=== PATIENT | female | born 1950 | race Caucasian/White ===

== ENCOUNTER 2016-11-17 11:04 | Day surgery (SDC) | payer BC, MEDICARE, OTHER ==
--- NOTE | 2016-11-16 20:00 | History and Physical ---
History & Physical CC: End stage renal disease,malfunctioning fistula HPI: Mrs. Powell is status post a longstanding history of severe chronic kidney disease. She currently has a renal transplant, which was placed in 2001 , which is failing presently. Prior to getting her previous renal transplant, she was on hemodialysis for a few years and had a left wrist cephalic vein fistula as well as a left antecubital cephalic vein fistula, both of which failed and are thrombosed. She currently states that her renal function is decreasing significantly and she is aware she will likely need dialysis in the near future. She is on a new transplant list; however, she is aware that her renal function is declining to the point that she will require dialysis before she receives any transplant. She now had a right upper extremity basilic vein fistula creation which has matured well. She then had a transposition of the fistula It is now not working well She denies any other complaints at this time including headaches, fevers, chills, dizziness, chest pain, shortness of breath, abdominal pain, nausea, vomiting, diarrhea, constipation, dysuria, hematuria, rest pain, claudication, nonhealing wounds or ulcers or other complaints. HER ALLERGIES INCLUDE UROKINASE AND VANCOMYCIN. Her medications are reconciled on the chart and include aspirin, Bactrim, Dexilant, Imuran, Lipitor, magnesium oxide, metoprolol succinate, Norvasc, prednisone, Procrit, Prograf, sodium bicarbonate, and vitamin D3. Her past medical history is positive for hypertension, chronic kidney disease, Stargardt eye disorder, hyperparathyroidism, hypothyroidism, chronic anemia, eosinophilic gastroenteritis, polyneuropathy, hyperlipidemia, West's esophagus. Past surgical history is positive for hysterectomy and bilateral salpingo- oophorectomy, kidney transplant, EGD, wisdom tooth extraction, dilation of esophageal stricture, colonoscopy, creation wrist arteriovenous fistula, creation antecubital cephalic vein arteriovenous fistula, left arm. Her social history is negative for tobacco, alcohol, or drug use. Her family history is positive for Crohn's disease in a brother, rheumatoid arthritis in a sister, Stargardt disease in 2 brothers and sister, diabetes in her father, [place] in an unknown family member, and cancer, nonspecific. Her review of systems is negative for fatigue, fevers, sweats, weight loss, abnormal moles or rashes, vision changes or photophobia. 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 She denies hearing loss, rhinorrhea, or pharyngeal erythema. She denies cough, shortness of breath, hemoptysis or wheezing, chest pain, palpitations, edema or syncope, abdominal pain, nausea, vomiting, diarrhea, constipation, dysuria, hematuria, muscle weakness, headaches, dizziness, numbness, or seizures. On physical exam, her vital signs today were as follows: Blood pressure of 142/ 80 in her right arm, heart rate of 71, oxygen 96% on room air. The patient is 67 inches tall and weighs 197 pounds. Constitutional: In general, patient is a healthy-appearing for age, well-nourished, well-developed middle-aged female in no acute distress. She ambulates without assistance and is active, alert and oriented x4 with normal recent and remote memory. Her head is normocephalic , atraumatic. Eyes are EOMI. Her ENMT exam demonstrates no hearing loss, rhinorrhea, or pharyngeal erythema. Her neck is supple, nontender with midline trachea without masses or crepitus. Her lung exam demonstrates no dyspnea. They are clear to auscultation bilaterally. Her cardiovascular exam demonstrates nondisplaced apical impulse with a regular rate and rhythm without murmurs, lifts, heaves, thrills, or gallops. Her peripheral pulses are full and equal in all extremities unless otherwise noted, specifically they are normal in her carotid, brachial, radial, and femoral pulses. There is a good thrill in her fistula. Her extremity distal pulses are +2. She has brisk capillary refill and no sign of distal ischemia. Her abdomen is soft, nontender with normoactive bowel sounds in all 4 quadrants without guarding or rebound. There is no flank or CVA tenderness and no bruits identified. There are no pulsatile masses appreciable. Her bilateral upper extremities demonstrate no cyanosis, edema, clubbing, varicosities, or ulcers. Her previous surgical scars are well-healed. Her bilateral lower extremities demonstrate trace edema but otherwise no varicosities, cyanosis, or discoloration. There are no ulcerations. Neurologically, the patient has grossly intact cranial nerves and grossly intact sensation. Assessment and Plan: End-stage renal disease, Malfunctioning fistula Plan: Patient is admitted for a fistulogram with possible intervention. I have discussed the risks options and benefits of the procedure with the patient. The patient understands the risks options and benefits and agrees to the procedure.
[~2016-11-17] VITALS: Ht 170.2 cm; Wt 91.0 kg
[~2016-11-17 11:04] MED LIST: ACET-1256 PO; AMLO2.5T PO; ASPI81TA28 PO; ATOR10TA88 PO; AZAT50TA17 PO; CALC0.2510 PO; CEFAZOLIN 1000MG/55 ML D5W IV SCH; CEFAZOLIN 2000 MG/60 ML D5W 60 ML IV SCH; D5W AND 1/4NSS 1,000 ML IV SCH; DEXL30CA5 PO; EPGI20M SQ; FRS/40 PO; METO25TA3 PO; ONDA8TAB7 PO; PRED-301 PO; SLWMEC PO; SODI650T8 PO; SULF400T7 PO; TACR1CAP PO; VITAMIN D3 PO; [UNRECOGNIZED DRUG - CODE] PO
[2016-11-17] MEDS ORDERED: MIDAZOLAM HCL 1 MG/ML 2ML VIAL ONE (11:36)
[2016-11-17] MEDS ORDERED: FENTANYL CITRATE INJ 50 MCG/1 ML 2 ML VIAL ONE (11:36)
[2016-11-17] MEDS ORDERED: PRED10TA PO (11:41)
[2016-11-17] MEDS ORDERED: EPOETIN IV (11:41)
[2016-11-17] MEDS ORDERED: Sodium Bicarbonate HM (11:41)
[2016-11-17] MEDS ORDERED: Vitamin B-12 IM (11:42)
--- NOTE | 2016-11-17 11:43 | History & Physical Bridge Note ---
H&P Re-Evaluation Bridge Note: I have examined the patient, reviewed the History & Physical and in the interval since the performance of the History & Physical I have noted the following changes of clinical significance: No changes noted
--- NOTE | 2016-11-17 11:43 | Procedure Note ---
Pre-Mod Sedation Assessment General Date of Moderate Sedation: Nov 17, 2016. Pre-Sedation Airway Assessment Smoking Status: Former Smoker Mallampati Classification: Class I ASA Classification: Class II Notes The planned sedation has been discussed with the patient and consent obtained. I have identified the patient, determined the appropriateness of sedation and have assessed the patient immediately prior to the procedure. All medicine(s) and interventions are by my order.
[2016-11-17] MEDS ORDERED: CINA60TA PO (11:44)
[2016-11-17] MEDS ORDERED: Citracal PO (11:44)
[2016-11-17 11:47] VITALS: BP 137/67; PULSE 80; TEMP 36.8; O2SAT 96; Ht 170.2 cm; Wt 91.0 kg
[2016-11-17] MEDS ORDERED: MIDAZOLAM HCL 1 MG/ML 2ML VIAL IV ONE (12:45)
[2016-11-17] MEDS ORDERED: FENTANYL CITRATE INJ 50 MCG/1 ML 2 ML VIAL IV ONE (12:45)
[2016-11-17] MEDS ORDERED: OPTIRAY 300 IV ONE (12:59)
[2016-11-17] MEDS ORDERED: LIDOCAINE HCL 1% 20 ML VIAL INJ ONE (12:59)
--- NOTE | 2016-11-17 13:08 | Procedure Note ---
Post-Moderate Sedation Plan General Date of Moderate Sedation Nov 17, 2016. Vital Signs: Vital Signs Past 12 Hours Date Time Temp Pulse Resp B/P Pulse Ox O2 Delivery O2 Flow Rate FiO2 11/17/16 11:47 36.8 80 18 137/67 96 Room Air Review - Discharge Plan Post Moderate Sedation Plan: On clinical assessment, the patient appears to have tolerated the conscious sedation without complications. Patient is recovering as anticipated. Patient will continue to be monitored by nursing and may be discharged when conscious sedation discharge criteria are met.
--- NOTE | 2016-11-17 13:09 | [facility] Post Operative Brief Note ---
Immediate Operative Summary Operative Date Nov 17, 2016. Pre-Operative Diagnosis Malfunctioning Fistula Post-Operative Diagnosis Same Procedure(s) Performed Fistulogram, Percutaneous Transluminal Angioplasty/Stent Venous, Peripheral, Moderate Concious Sedation [id number] Surgeon Ronit Call Center Rn Surgeon(s) None Estimated Blood Loss 10 ml Findings good thrill, 10% residual stenosis Specimens None Anesthesia Local with moderate conscious sedation Complication(s) None Disposition
[2016-11-17 13:10] VITALS: BP 132/67; PULSE 81; TEMP 36.7; O2SAT 97
--- NOTE | 2016-11-17 13:13 | Discharge Instructions ---
Discharge Instructions Visit Reason for Visit: End Stage Renal Disease, Malfuctioning Fistula Discharge Discharge Diagnosis / Problem: Malfunctioning left arm fistula Discharge Goals Goal(s): Therapeutic intervention Activity Recommendations Activity Limitations: per Instructions/Follow-up section Anesthesia . Post Anesthesia Instructions: If you have had General Anesthesia or IV Sedation: * Do not drive today. * Resume driving when surgeon permits. * Do not make important decisions or sign legal documents today. * Call surgeon for: 1. Temperature elevations greater than 101 degrees F. 2. Uncontrollable pain. 3. Excessive bleeding. 4. Persistent nausea and vomiting. 5. Medication intolerance (nausea, vomiting or rash). * For nausea and vomiting use only clear liquids such as: tea, soda, bouillon until nausea subsides, then gradually increase diet as tolerated. * If you have any concerns or questions, call your surgeon's office. If physician is unavailable and it is an emergency, call 911 or go to the nearest emergency room. . Instructions / Follow-Up Instructions / Follow-Up Call [phone] with any questions or concerns. SPECIAL CARE INSTRUCTIONS: Medications: * Continue to take your medications as directed. If you have been given a prescription for Plavix, please fill it immediately and take as directed. Incision Care: * Your puncture site may have some bruising and minor swelling for about one week. * You will have a small dressing covering your puncture site. You may remove the dressing after 24 hours and shower. You may let the warm soapy water run over it, but be sure to dry the puncture site well and keep it dry. * DO NOT IMMERSE THE INCISION IN A TUB/POOL/etc. UNTIL HEALED. * Puncture sites should be kept covered with a band-aid until it begins to heal. Restrictions: * Depending on whether you leg or arm was punctured to access the arteries, you will be required to lay flat, hold your arm still, or both, for about 4 hours after the procedure to prevent bleeding. * Limit your activity for the first 48 hours. You may walk and go up and down steps. Avoid excessive bending or movement at the puncture site. Possible Complications: * Excessive Swelling - after blood flow is improved you may notice increased swelling in the lower legs. This is a normal response. This usually depends on the amount of blockages in the leg, how long they have been there prior to your procedure and how much blood flow was restored. Elevating your legs will help to improve this. Please notify our office ([phone] ) if the swelling does not go away after lying in bed overnight. * Infection/Drainage/Bleeding - Drainage or bleeding from the puncture site should be minimal. If you have excessive bleeding or drainage, call our office ([phone]) right away. * Pain - You may experience some mild pain or soreness at your puncture site. If your pain does not improve, please contact our office ([phone]). Call your doctor and seek emergent treatment if you develop: * Temperature above 101 degrees * Any fever or chills * Any redness or purulent drainage from the puncture site * Any new dusky/blue colored toes or feet with coolness or sharp or aching pain. SKIN IRRITATION: * You may experience some redness and/or swelling in the area where radiation was administered. If any skin irritation occurs, please contact your family physician. FOLLOW UP VISIT: Keep any scheduled doctor appointments. Diet Recommendations Recommended Home Diet: resume previous diet Procedures Procedures Performed: Fistulogram, Percutaneous Transluminal Angioplasty/Stent Venous, Peripheral, Moderate Concious Sedation [id number] Pending Studies Studies pending at discharge: no Medical Emergencies . Who to Call and When: Medical Emergencies: If at any time you feel your situation is an emergency, please call 911 immediately. . Non-Emergent Contact Non-Emergency issues call your: Surgeon . . "Provider Documentation" section prepared by Florian Cottrell.
[2016-11-17 13:40] VITALS: BP 149/69; PULSE 84; O2SAT 98
--- NOTE | 2016-11-26 09:35 | DIAGNOSTIC IMAGING REPORT ---
DATE OF PROCEDURE: 11/17/2016 DATE OF PROCEDURE: 11/17/2016. PREOPERATIVE DIAGNOSIS: Malfunctioning left upper arm basilic vein fistula. POSTOPERATIVE DIAGNOSIS: Same. PROCEDURE: 1. Left upper extremity fistulogram. 2. Balloon and stenting of the left upper arm fistula. 3. Moderate conscious sedation 18 minutes. SURGEON: Dr. Cottrell. ANESTHETIC: Local with moderate conscious sedation. INDICATIONS: The patient is a 66-year-old female with left upper arm basilic vein fistula. They are having flow problems with the fistula. Fistulogram was recommended. She understood the risks, options and benefits and agreed to have this procedure. PROCEDURE: The patient was taken to the angiogram suite and placed in supine position. After left upper arm was prepped and draped in a sterile manner, local anesthetic was administered. Percutaneous puncture was made of the proximal portion of the fistula using micropuncture technique and micropuncture sheath was inserted. The fistulogram was then performed. This showed a large 8 mm fistula up to the upper arm just before the anterior axillary line at which point there was a greater than 90% narrowing which was approximately 3.9 cm in length. The more proximal veins and central veins were all widely patent. It was decided at this point due to the length and the amount of stenosis that this will have to be stented. An 0.035 wire was inserted. It was passed through the stenosis. The sheath was exchanged for a 7 Tamazight sheath. A 9 x 59 iCAST was then inserted and the stent was deployed. There was a significant residual stenosis center in the stent. The stent on the completion injection was widely patent with good apposition proximally and distally. Again, the only narrowing was right in the center of the stent. A 6 x 2 Conquest balloon was then inserted and this area was dilated. There was still residual narrowing seen. An 8 x 2 balloon was then inserted and this focal narrowing was redilated to 32 atmospheres. This resolved the narrowing. There was less than 10% residual in the center portion of the stent. Excellent flow was seen through the fistula. Good thrill was felt. The sheath was then pulled, pressure was applied. Adequate hemostasis was obtained. Sterile dressings were applied to the wound and the patient left the angio suite in good condition and tolerated the procedure well.
== END 2016-11-17 13:45 | disposition home or self-care (01) ==
LOC: C.ACU 11:04
PROVIDERS: ATTEND Surgery Vascular Surgery
DX: T82.868A Thrombosis due to vascular prosthetic devices, implants and grafts, initial encounter (principal); I12.9 Hypertensive chronic kidney disease with stage 1 through stage 4 chronic kidney disease, or unspecified chronic kidney disease; N18.9 Chronic kidney disease, unspecified; D64.9 Anemia, unspecified; E21.3 Hyperparathyroidism, unspecified; K52.81 Eosinophilic gastritis or gastroenteritis; Y84.8 Other medical procedures as the cause of abnormal reaction of the patient, or of later complication, without mention of misadventure at the time of the procedure; Z88.1 Allergy status to other antibiotic agents; Z88.8 Allergy status to other drugs, medicaments and biological substances; Z90.710 Acquired absence of both cervix and uterus; Z98.890 Other specified postprocedural states

== ENCOUNTER → 2016-12-22 | Outpatient (CLI) | payer MEDICARE ==
[~2016-12-22] MED LIST changes: -AZAT50TA17 PO; -CALC0.2510 PO; -CEFAZOLIN 1000MG/55 ML D5W IV SCH; -CEFAZOLIN 2000 MG/60 ML D5W 60 ML IV SCH; +CINA60TA PO; +Citracal PO; -D5W AND 1/4NSS 1,000 ML IV SCH; -EPGI20M SQ; +EPOETIN IV; -PRED-301 PO; +PRED10TA PO; -SODI650T8 PO; +Sodium Bicarbonate HM; +Vitamin B-12 IM
== END | disposition home or self-care (01) ==
LOC: C.MAMM 13:23
PROVIDERS: ATTEND Family Medicine
DX: M85.851 Other specified disorders of bone density and structure, right thigh (principal); M85.852 Other specified disorders of bone density and structure, left thigh

== ENCOUNTER → 2017-04-06 | Outpatient (CLI) | payer MEDICARE ==
[~2017-04-06] MED LIST changes: +ATOR10TA82 PO; -ATOR10TA88 PO
--- NOTE | 2017-04-07 08:20 | MAMMOGRAPHY REPORT ---
BILATERAL DIGITAL SCREENING MAMMOGRAM WITH CAD: 04/06/2017 CLINICAL HISTORY: Routine screening. Patient has no complaints. TECHNIQUE: Bilateral CC and MLO views were obtained. Current study was also evaluated with a Compute r Aided Detection (CAD) system. COMPARISON: Comparison is made to exams dated: 04/18/2015 mammogram, 03/20/2014 mammogram, 11/29/2012 ma mmogram, 11/23/2011 mammogram, 11/20/2010 mammogram, and 11/11/2009 mammogram - [facility]ter. BREAST COMPOSITION: There are scattered areas of fibroglandular density in both breasts. FINDINGS: There are a few stable benign-appearing calcifications in the breasts. No suspicious mass , architectural distortion or cluster of microcalcifications is seen. IMPRESSION: ACR BI-RADS CATEGORY 1: NEGATIVE There is no mammographic evidence of malignancy. A 1 year screening mammogram is recommended. The pa tient will receive written notification of the results. Approximately 10% of breast cancers are not detected with mammography. A negative mammographic report should not delay biopsy if a clinically suggestive mass is present. Evelin Ceja M.D. ay/:04/06/2017 16:41:12 Embedded Systems Software Engineer: Lucy MANCIA(Isak)(M), [facility] letter sent: Normal 1/2 BI-RADS Code: ACR BI-RADS Category 1: Negative
== END | disposition home or self-care (01) ==
LOC: C.MAMM 15:34
PROVIDERS: ATTEND Obstetrics & Gynecology
DX: Z12.31 Encounter for screening mammogram for malignant neoplasm of breast (principal)

== ENCOUNTER → 2017-05-25 | Day surgery (SDC) | payer MEDICARE ==
[~2017-05-25] VITALS: Ht 170.2 cm; Wt 100.1 kg
[~2017-05-25] MED LIST changes: -ATOR10TA82 PO; +ATOR10TA88 PO; +CEFAZOLIN 1000MG/55 ML D5W IV SCH; +CEFAZOLIN 2000 MG/60 ML D5W IV SCH; +CEFAZOLIN IV 2,000 MG/60 ML D5W IV ONE; +D5W AND 1/4NSS 1000 ML IV SCH; +FENTANYL CITRATE INJ 50 MCG/1 ML 2 ML VIAL ONE; +KETAMINE HCL INJ 50 MG/ML 10 ML VIAL ONE; +LIDOCAINE HCL 1% 20 ML VIAL INJ ONE; +MIDAZOLAM HCL 1 MG/ML 2ML VIAL ONE; +OPTIRAY 300 IV ONE; +PROPOFOL IV EMULSION 10 MG/ML 20 ML VIAL IV ONE
--- NOTE | 2017-05-25 07:17 | History and Physical ---
History & Physical Date of Service May 25, 2017. History & Physical CC: End stage renal disease,malfunctioning fistula HPI: Mrs. Powell is status post a longstanding history of severe chronic kidney disease. She currently has a renal transplant, which was placed in 2001 , which is failing presently. Prior to getting her previous renal transplant, she was on hemodialysis for a few years and had a left wrist cephalic vein fistula as well as a left antecubital cephalic vein fistula, both of which failed and are thrombosed. She currently states that her renal function is decreasing significantly and she is aware she will likely need dialysis in the near future. She is on a new transplant list; however, she is aware that her renal function is declining to the point that she will require dialysis before she receives any transplant. She now had a right upper extremity basilic vein fistula creation which has matured well. She then had a transposition of the fistula It is now not working well She denies any other complaints at this time including headaches, fevers, chills, dizziness, chest pain, shortness of breath, abdominal pain, nausea, vomiting, diarrhea, constipation, dysuria, hematuria, rest pain, claudication, nonhealing wounds or ulcers or other complaints. HER ALLERGIES INCLUDE UROKINASE AND VANCOMYCIN. Her medications are reconciled on the chart and include aspirin, Bactrim, Dexilant, Imuran, Lipitor, magnesium oxide, metoprolol succinate, Norvasc, prednisone, Procrit, Prograf, sodium bicarbonate, and vitamin D3. Her past medical history is positive for hypertension, chronic kidney disease, Stargardt eye disorder, hyperparathyroidism, hypothyroidism, chronic anemia, eosinophilic gastroenteritis, polyneuropathy, hyperlipidemia, West's esophagus. Past surgical history is positive for hysterectomy and bilateral salpingo- oophorectomy, kidney transplant, EGD, wisdom tooth extraction, dilation of esophageal stricture, colonoscopy, creation wrist arteriovenous fistula, creation antecubital cephalic vein arteriovenous fistula, left arm. Her social history is negative for tobacco, alcohol, or drug use. Her family history is positive for Crohn's disease in a brother, rheumatoid arthritis in a sister, Stargardt disease in 2 brothers and sister, diabetes in her father, [place] in an unknown family member, and cancer, nonspecific. Her review of systems is negative for fatigue, fevers, sweats, weight loss, abnormal moles or rashes, vision changes or photophobia. 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 She denies hearing loss, rhinorrhea, or pharyngeal erythema. She denies cough, shortness of breath, hemoptysis or wheezing, chest pain, palpitations, edema or syncope, abdominal pain, nausea, vomiting, diarrhea, constipation, dysuria, hematuria, muscle weakness, headaches, dizziness, numbness, or seizures. On physical exam, her vital signs today were as follows: Blood pressure of 142/ 80 in her right arm, heart rate of 71, oxygen 96% on room air. The patient is 67 inches tall and weighs 197 pounds. Constitutional: In general, patient is a healthy-appearing for age, well-nourished, well-developed middle-aged female in no acute distress. She ambulates without assistance and is active, alert and oriented x4 with normal recent and remote memory. Her head is normocephalic , atraumatic. Eyes are EOMI. Her ENMT exam demonstrates no hearing loss, rhinorrhea, or pharyngeal erythema. Her neck is supple, nontender with midline trachea without masses or crepitus. Her lung exam demonstrates no dyspnea. They are clear to auscultation bilaterally. Her cardiovascular exam demonstrates nondisplaced apical impulse with a regular rate and rhythm without murmurs, lifts, heaves, thrills, or gallops. Her peripheral pulses are full and equal in all extremities unless otherwise noted, specifically they are normal in her carotid, brachial, radial, and femoral pulses. There is a good thrill in her fistula. Her extremity distal pulses are +2. She has brisk capillary refill and no sign of distal ischemia. Her abdomen is soft, nontender with normoactive bowel sounds in all 4 quadrants without guarding or rebound. There is no flank or CVA tenderness and no bruits identified. There are no pulsatile masses appreciable. Her bilateral upper extremities demonstrate no cyanosis, edema, clubbing, varicosities, or ulcers. Her previous surgical scars are well-healed. Her bilateral lower extremities demonstrate trace edema but otherwise no varicosities, cyanosis, or discoloration. There are no ulcerations. Neurologically, the patient has grossly intact cranial nerves and grossly intact sensation. Assessment and Plan: End-stage renal disease, Malfunctioning fistula Plan: Patient is admitted for a fistulogram with possible intervention. I have discussed the risks options and benefits of the procedure with the patient. The patient understands the risks options and benefits and agrees to the procedure.
[2017-05-25 08:02] VITALS: BP 101/56; PULSE 69; TEMP 36.6; O2SAT 93; Ht 170.2 cm; Wt 100.1 kg
--- NOTE | 2017-05-25 10:34 | [facility] Post Operative Brief Note ---
Immediate Operative Summary Operative Date May 25, 2017. Pre-Operative Diagnosis malfunctioning fistula Post-Operative Diagnosis same Procedure(s) Performed Fistulogram, Percutaneous Transluminal Angioplasty Venous Surgeon Dr. Cottrell Curtain Stretcher Surgeon(s) none Estimated Blood Loss 3 ml Findings no residual stenosis Specimens none Anesthesia MAC Complication(s) None Disposition Recovery Room / PACU
--- NOTE | 2017-05-25 10:39 | Discharge Instructions ---
Discharge Instructions Date of Service May 25, 2017. Visit Reason for Visit: End Stage Renal Disease -On Hemodialysis Discharge Discharge Diagnosis / Problem: Malfunctioning left arm fistula, balloon angioplasty left arm fistula Discharge Goals Goal(s): Therapeutic intervention Activity Recommendations Activity Limitations: resume your previous activity Anesthesia . Post Anesthesia Instructions: If you have had General Anesthesia or IV Sedation: * Do not drive today. * Resume driving when surgeon permits. * Do not make important decisions or sign legal documents today. * Call surgeon for: 1. Temperature elevations greater than 101 degrees F. 2. Uncontrollable pain. 3. Excessive bleeding. 4. Persistent nausea and vomiting. 5. Medication intolerance (nausea, vomiting or rash). * For nausea and vomiting use only clear liquids such as: tea, soda, bouillon until nausea subsides, then gradually increase diet as tolerated. * If you have any concerns or questions, call your surgeon's office. If physician is unavailable and it is an emergency, call 911 or go to the nearest emergency room. . Instructions / Follow-Up Instructions / Follow-Up SPECIAL CARE INSTRUCTIONS: Medications: * Continue to take your medications as directed. If you have been given a prescription for Plavix, please fill it immediately and take as directed. Incision Care: * Your puncture site may have some bruising and minor swelling for about one week. * You will have a small dressing covering your puncture site. You may remove the dressing after 24 hours and shower. You may let the warm soapy water run over it, but be sure to dry the puncture site well and keep it dry. * DO NOT IMMERSE THE INCISION IN A TUB/POOL/etc. UNTIL HEALED. * Puncture sites should be kept covered with a band-aid until it begins to heal. Restrictions: * Depending on whether you leg or arm was punctured to access the arteries, you will be required to lay flat, hold your arm still, or both, for about 4 hours after the procedure to prevent bleeding. * Limit your activity for the first 48 hours. You may walk and go up and down steps. Avoid excessive bending or movement at the puncture site. Possible Complications: * Excessive Swelling - after blood flow is improved you may notice increased swelling in the lower legs. This is a normal response. This usually depends on the amount of blockages in the leg, how long they have been there prior to your procedure and how much blood flow was restored. Elevating your legs will help to improve this. Please notify our office ([phone] ) if the swelling does not go away after lying in bed overnight. * Infection/Drainage/Bleeding - Drainage or bleeding from the puncture site should be minimal. If you have excessive bleeding or drainage, call our office ([phone]) right away. * Pain - You may experience some mild pain or soreness at your puncture site. If your pain does not improve, please contact our office ([phone]). Call your doctor and seek emergent treatment if you develop: * Temperature above 101 degrees * Any fever or chills * Any redness or purulent drainage from the puncture site * Any new dusky/blue colored toes or feet with coolness or sharp or aching pain. SKIN IRRITATION: * You may experience some redness and/or swelling in the area where radiation was administered. If any skin irritation occurs, please contact your family physician. FOLLOW UP VISIT: Keep any scheduled doctor appointments. Diet Recommendations Recommended Home Diet: resume previous diet Procedures Procedures Performed: Fistulogram, Percutaneous Transluminal Angioplasty Venous Pending Studies Studies pending at discharge: no Medical Emergencies . Who to Call and When: Medical Emergencies: If at any time you feel your situation is an emergency, please call 911 immediately. . Non-Emergent Contact Non-Emergency issues call your: Surgeon . . "Provider Documentation" section prepared by Florian Cottrell. .
[2017-05-25 10:40] VITALS: BP 169/71; PULSE 71; TEMP 36.5; O2SAT 95
--- NOTE | 2017-05-25 10:45 | [facility] Operative Report ---
Operative Report Operative Date May 25, 2017. Pre-Operative Diagnosis malfunctioning fistula Post-Operative Diagnosis same Procedure(s) Performed Fistulogram, Percutaneous Transluminal Angioplasty Venous Surgeon Dr. Cottrell Associate Programmer Analyst Surgeon(s) none Estimated Blood Loss 3 ml Findings no residual stenosis Specimens none Anesthesia MAC Complication(s) None Disposition Recovery Room / PACU Indications This patient is a 66-year-old female with a left upper arm AV fistula. She is having high venous pressures at dialysis. Fistulogram with possible intervention is recommended. She understood the risks options and benefits and agrees to go ahead with this procedure. Description of Procedure Patient was taken to the angiogram suite and placed in the supine position. The left arm was then prepped and draped in a sterile manner. A percutaneous puncture was made of the proximal portion of the fistula using micropuncture technique and the micropuncture sheath was inserted. This showed a 70% narrowing in the previously placed stent. The rest of the outflow veins are normal without stenosis. Compression a fistula was then performed and a retrograde injection was done which showed a widely patent proximal fistula as well as a widely patent proximal anastomosis. It was decided to balloon angioplasty the stent. An 035 wire was then inserted through the sheath and passed up through the narrowing. The 6 Serbian sheath as then inserted over the wire. Using an 8 x 6 balloon the area was angioplastied. We also angioplastied the vein just beyond the stent. Excellent results were seen with no residual stenosis. The fistula had an excellent palpable at the end of the procedure. The sheath was then pulled pressure was applied and adequate hemostasis was obtained. A sterile dressing was applied to the wound and the patient left the angiogram suite in good condition tolerated procedure well. I attest to the content of the Intraoperative Record and any orders documented therein. Any exceptions are noted below.
[2017-05-25 11:10] VITALS: BP 120/55; PULSE 68; TEMP 36.5; O2SAT 96
--- NOTE | 2017-05-25 12:23 | Anesthesiology Progress Note ---
Anesthesia Post Op Note Date & Time May 25, 2017 at 12:23 Vital Signs Pain Intensity: 0 Vital Signs Past 12 Hours Date Time Temp Pulse Resp B/P (MAP) Pulse Ox O2 Delivery O2 Flow Rate FiO2 05/25/17 11:10 36.5 68 18 120/55 96 Room Air 05/25/17 10:40 36.5 71 18 169/71 95 Room Air 05/25/17 08:02 36.6 69 18 101/56 (71) 93 Room Air Notes Mental Status: alert / awake / arousable, participated in evaluation Pt Amnestic to Procedure: Yes Nausea / Vomiting: adequately controlled Pain: adequately controlled Airway Patency, RR, SpO2: stable & adequate BP & HR: stable & adequate Hydration State: stable & adequate Anesthetic Complications: no major complications apparent
== END | disposition home or self-care (01) ==
LOC: C.ACU 07:42
PROVIDERS: ATTEND Surgery Vascular Surgery
DX: T82.590A Other mechanical complication of surgically created arteriovenous fistula, initial encounter (principal); Y83.2 Surgical operation with anastomosis, bypass or graft as the cause of abnormal reaction of the patient, or of later complication, without mention of misadventure at the time of the procedure; N18.6 End stage renal disease; Z94.0 Kidney transplant status; I10 Essential (primary) hypertension; N18.9 Chronic kidney disease, unspecified; E21.3 Hyperparathyroidism, unspecified; E03.9 Hypothyroidism, unspecified; E78.5 Hyperlipidemia, unspecified; K22.70 Barrett's esophagus without dysplasia; Z99.2 Dependence on renal dialysis

== ENCOUNTER 2017-11-26 16:18 | Emergency (ER) | payer MEDICARE ==
[~2017-11-26] VITALS: Ht 170.2 cm; Wt 104.7 kg
[~2017-11-26 16:18] MED LIST changes: -ASPI81TA28 PO; +ATOR10TA82 PO; -ATOR10TA88 PO; -CEFAZOLIN 1000MG/55 ML D5W IV SCH; -CEFAZOLIN 2000 MG/60 ML D5W IV SCH; -CEFAZOLIN IV 2,000 MG/60 ML D5W IV ONE; -D5W AND 1/4NSS 1000 ML IV SCH; -FENTANYL CITRATE INJ 50 MCG/1 ML 2 ML VIAL ONE; -KETAMINE HCL INJ 50 MG/ML 10 ML VIAL ONE; -LIDOCAINE HCL 1% 20 ML VIAL INJ ONE; -MIDAZOLAM HCL 1 MG/ML 2ML VIAL ONE; -OPTIRAY 300 IV ONE; -PROPOFOL IV EMULSION 10 MG/ML 20 ML VIAL IV ONE; -SULF400T7 PO
[2017-11-26 16:26] VITALS: TEMP 36.6; Ht 170.2 cm; Wt 104.7 kg
[2017-11-26] MEDS ORDERED: SEVE800T7 PO (17:04)
[2017-11-26] MEDS ORDERED: NRV/10 PO (17:04)
[2017-11-26] MEDS ORDERED: TPRSR/25 PO (17:04)
[2017-11-26 17:05] LABS: BASO % 0.2 %; BASO ABS # 0.02 K/uL (0-0.2); EOS % 0.8 %; EOS ABS # 0.08 K/uL (0-0.5); HEMATOCRIT 41.4 % (37-47); HEMOGLOBIN 13.3 g/dL (12.0-16.0); IG# 0.04 K/uL (0.00-0.02); LYMPH % 11.1 %; LYMPH ABS # 1.11 K/uL (1.2-3.4); MEAN CELL VOLUME 105.9 fL (80-100); MEAN CORPUSCULAR HGB CONC 32.1 g/dl (32-36); MONO % 5.4 %; MONO ABS # 0.54 K/uL (0.11-0.59); NEUT % 82.1 %; PLATELET COUNT 239 K/uL (130-400); RED CELL DISTRIBUTION WIDTH CV 14.6 % (11.5-14.5); RED CELL DISTRIBUTION WIDTH SD 55.8 fL (36.4-46.3); WHITE BLOOD COUNT 9.99 K/uL (4.8-10.8)
--- NOTE | 2017-11-26 17:20 | DIAGNOSTIC IMAGING REPORT ---
CT SCAN OF THE ABDOMEN AND PELVIS WITHOUT IV CONTRAST CLINICAL HISTORY: Right lower quadrant abdominal pain. COMPARISON STUDY: Abdominal CT dated 04/20/2014. TECHNIQUE: CT scan of the abdomen and pelvis is performed from the lung bases to the proximal femora. Images are reviewed in the axial, sagittal, and coronal planes. IV contrast was not administered for this examination as per the referring clinician. Note that the examination was performed in suboptimal fashion without oral and IV contrast. A dose lowering technique was utilized adhering to the principles of ALARA. CT DOSE: 974.71 mGy.cm FINDINGS: Lung bases: The heart is normal in size and without pericardial effusion. The lung bases are clear noting bibasilar atelectasis. Liver: The unenhanced liver is normal in size, contour, and attenuation. There is no intrahepatic biliary ductal dilatation. Gallbladder: Unremarkable. Spleen: Normal in size and attenuation. Pancreas: Unremarkable. Adrenal glands: Unremarkable. Kidneys: The unenhanced kashia kidneys are markedly atrophic and without hydronephrosis. There are no renal calculi identified. There is no evidence of contour deforming renal mass lesion. Abdominal vasculature: The abdominal aorta is normal in course and caliber. Stomach and bowel: There is a large hiatal hernia, with over half of the stomach located in the thoracic cavity. The duodenum is normal in configuration. No bowel obstruction is seen. There is advanced colonic diverticulosis without CT evidence of acute diverticulitis. The appendix is well-visualized and normal. Peritoneum: There is no intraperitoneal free air or abdominal ascites. There is a small fat-containing umbilical hernia. Lymphadenopathy: None. Pelvic viscera: The bladder is decompressed and grossly unremarkable. The uterus is surgically absent. No adnexal lesion is seen. 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 The transplant appears atrophic. No hydronephrosis is seen. Skeletal structures: The skeletal structures are osteopenic. No lytic or blastic lesions are seen. IMPRESSION: 1. There are no acute infectious or inflammatory findings in the abdomen or pelvis. 2. Advanced colonic diverticulosis without CT evidence of acute diverticulitis. 3. The kashia kidneys are markedly atrophic and without hydronephrosis. 4. 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 There is been progressive atrophy of the pelvic transplant as compared to the 2014 examination. There is no hydronephrosis. 5. Large hiatal hernia. 6. Additional findings as above. Electronically signed by: Sandip Butler M.D. 11/26/2017 5:19 PM Dictated Date/Time: 11/26/2017 5:14 PM
[2017-11-26 17:28] LABS: CREATININE 3.89 mg/dl (0.60-1.20)
[2017-11-26 17:29] LABS: ALBUMIN 3.6 gm/dl (3.4-5.0); CALCIUM 8.8 mg/dl (8.5-10.1)
[2017-11-26] MEDS ORDERED: CHOL1TAB42 PO (17:39)
[2017-11-26] MEDS ORDERED: CYAN100048 SQ (17:39)
[2017-11-26] MEDS ORDERED: CALC-323 PO (17:39)
[2017-11-26] MEDS ORDERED: EPGI2M SQ (17:39)
[2017-11-26] MEDS ORDERED: ONDA8TAB6 PO (17:39)
[2017-11-26] MEDS ORDERED: PRED-301 PO (17:39)
[2017-11-26] MEDS ORDERED: AMOXICILLIN/CLAVULANATE TAB 875 MG TAB PO ONE (18:15)
[2017-11-26] MEDS ORDERED: AMOX875T PO (18:17)
[2017-11-26 18:32] VITALS: BP 126/71; PULSE 79; O2SAT 98
--- NOTE | 2017-11-26 20:24 | EMERGENCY ROOM VISIT NOTE ---
History Report prepared by Melyssa: Aidan Garsia Under the Supervision of: Dr. David Blue M.D. First contact with patient: 16:37 Chief Complaint: ABDOMINAL PAIN Stated Complaint: HAS A KIDNEY TRANSPLANT-IT IS HURTING Nursing Triage Summary: Patient presents with c/o back pain and right lower abdominal pain States symptoms began about 2 weeks ago and worsened today Patient has history of kidney transplant in 2001 She is also on dialysis and last was today History of Present Illness The patient is a 67 year old female who presents to the Emergency Room with complaints of sharp RLQ abdominal pain that began about two weeks ago, but worsened significantly yesterday. She rates her pain a 4/10 in severity. She has a history of a kidney transplant in 2001 and is on dialysis secondary to it failing. Her most recent dialysis treatment was today. When her pain began, she was experiencing mostly back tightness with some mild abdominal pain, but nothing nearly like yesterday. However, yesterday her pain worsened significantly in her RLQ and her back pain is still present. She noticed some trace amounts of fluid in her legs, but notes that it is normal for her. Pt denies LOC, headache, fevers, chills, diaphoresis, visual changes, neck pain, chest pain, breathing difficulties, nausea, vomiting, melena, hematochezia, urinary symptoms, numbness, weakness, lymphadenopathy, rash, or other complaints. She also has a past medical history of a hysterectomy, GERD, West 's disease, and diverticulitis. Source of History: patient Onset: yesterday Position: abdomen (RLQ) Symptom Intensity: 4/10 Quality: sharp Timing: worsening Associated Symptoms: + back pain Review of Systems See HPI for pertinent positives and negatives. A total of ten systems were reviewed and were otherwise negative. Past Medical & Surgical Medical Problems: (1) Acute GI bleeding (2) Acute renal failure (3) Acute renal failure syndrome (4) Anemia (5) Basilic vein thrombosis (6) Bilateral kidney transplants (7) Chronic kidney disease stage 3 (8) CKD (chronic kidney disease) (9) CRD (chronic renal disease) (10) Dehydration (11) Dehydration (12) Dehydration (13) Diarrhea (14) Diverticulitis (15) Diverticulitis (16) Epigastric abdominal pain (17) Epigastric abdominal pain (18) Esophageal Reflux (19) Hyperkalemia (20) Hyperlipidemia Nec/Nos (21) Hypertension Nos (22) Hypomagnesemia (23) Hypomagnesemia (24) Hypotension (25) Intractable nausea and vomiting (26) Migraine (27) Mild dehydration (28) Pyelonephritis (29) Recurrent urinary tract infection (30) Renal failure (31) Secondary hyperparathyroidism (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) Surgical Problems: (1) History of kidney transplant Family History Diabetes mellitus Social History Smoking Status: Never Smoker Drug Use: none Marital Status: Housing Status: lives with significant other Occupation Status: employed Current/Historical Medications Scheduled Amlodipine Besylate (Amlodipine Besylate), 10 MG PO DAILY Amoxicillin & Pot Clavulanate (Augmentin 875-125 mg), 875 MG PO BID Aspirin (Aspirin Ec), 81 MG PO QPM Atorvastatin (Lipitor), 10 MG PO QPM Calcium Citrate-Vitamin D (Citracal Maximum), 1 TAB PO QAM Cholecalciferol (Vitamin D), 1 TAB PO DAILY Cinecalcet (Sensipar), 60 MG PO QPM Cyanocobalamin (Vitamin B-12), 1,000 MCG SQ MONTHLY Dexlansoprazole (Dexilant), 30 MG PO QAM Epoetin Gutierrez (Procrit), 1 DOSE SQ UD Furosemide (Lasix), 40 MG PO QAM Magnesium Chloride (Slow-Mag Tab), 2 TAB PO BID Metoprolol Succinate (Metoprolol Succinate ER), 75 MG PO DAILY Prednisone (Prednisone), 5 MG PO DAILY Sevelamer Carbonate (Renvela), 1 TAB PO TIDM Sulfamethoxazole-Trimethoprim (Bactrim 400MG/80MG), 1 TAB PO 3XWK Tacrolimus (Prograf), 2 MG PO QAM Tacrolimus (Prograf), 1 MG PO QPM Scheduled PRN Acetaminophen (Tylenol), 1 TAB PO Q6H PRN for Pain Ondansetron Hcl (Zofran), 8 MG PO Q6 PRN for Nausea Allergies Coded Allergies: Urokinase (Verified Allergy, Severe, RESP DISTRESS, 11/17/16) Vancomycin (Verified Allergy, Severe, RESP DISTRESS, 11/17/16) Salicylates (Verified Adverse Reaction, Severe, AVOIDS SECONDARY TO CKD, ) CAN TAKE ASA 81MG WITHOUT ISSUES; AVOIDS HIGHER DOSES Physical Exam Vital Signs Date Time Temp Pulse Resp B/P (MAP) Pulse Ox O2 Delivery O2 Flow Rate FiO2 11/26/17 18:32 79 18 126/71 98 Room Air 11/26/17 17:39 75 16 137/68 94 Room Air 11/26/17 16:26 36.6 83 20 150/87 97 Room Air Physical Exam GENERAL: Awake, alert, well-appearing, in no distress HENT: Normocephalic, atraumatic. Oropharynx unremarkable. EYES: Normal conjunctiva. Sclera non-icteric. NECK: Supple. No nuchal rigidity. FROM. No JVD. RESPIRATORY: Clear to auscultation. CARDIAC: Regular rate, normal rhythm. Extremities warm and well perfused. Pulses equal. ABDOMEN: Soft, non-distended. RLQ tenderness to palpation. No rebound or guarding. No masses. RECTAL: Deferred. MUSCULOSKELETAL: Chest examination reveals no tenderness. The back is symmetrical on inspection without obvious abnormality. There is no CVA tenderness to palpation. No joint edema. LOWER EXTREMITIES: Calves are equal size bilaterally and non-tender. Trace bilateral edema. No discoloration. NEURO: Normal sensorium. No sensory or motor deficits noted. SKIN: No rash or jaundice noted. Medical Decision & Procedures ER Provider Diagnostic Interpretation: Radiology results as stated below per my review and radiologist interpretation: CT SCAN OF THE ABDOMEN AND PELVIS WITHOUT IV CONTRAST CLINICAL HISTORY: Right lower quadrant abdominal pain. COMPARISON STUDY: Abdominal CT dated 04/20/2014. TECHNIQUE: CT scan of the abdomen and pelvis is performed from the lung bases to the proximal femora. Images are reviewed in the axial, sagittal, and coronal planes. IV contrast was not administered for this examination as per the referring clinician. Note that the examination was performed in suboptimal fashion without oral and IV contrast. A dose lowering technique was utilized adhering to the principles of ALARA. CT DOSE: 974.71 mGy.cm FINDINGS: Lung bases: The heart is normal in size and without pericardial effusion. The lung bases are clear noting bibasilar atelectasis. Liver: The unenhanced liver is normal in size, contour, and attenuation. There is no intrahepatic biliary ductal dilatation. Gallbladder: Unremarkable. Spleen: Normal in size and attenuation. Pancreas: Unremarkable. Adrenal glands: Unremarkable. Kidneys: The unenhanced [place] kidneys are markedly atrophic and without hydronephrosis. There are no renal calculi identified. There is no evidence of contour deforming renal mass lesion. Abdominal vasculature: The abdominal aorta is normal in course and caliber. Stomach and bowel: There is a large hiatal hernia, with over half of the stomach located in the thoracic cavity. The duodenum is normal in configuration. No bowel obstruction is seen. There is advanced colonic diverticulosis without CT evidence of acute diverticulitis. The appendix is well-visualized and normal. Peritoneum: There is no intraperitoneal free air or abdominal ascites. There is a small fat-containing umbilical hernia. Lymphadenopathy: None. Pelvic viscera: The bladder is decompressed and grossly unremarkable. The uterus is surgically absent. No adnexal lesion is seen. 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 The transplant appears atrophic. No hydronephrosis is seen. Skeletal structures: The skeletal structures are osteopenic. No lytic or blastic lesions are seen. IMPRESSION: 1. There are no acute infectious or inflammatory findings in the abdomen or pelvis. 2. Advanced colonic diverticulosis without CT evidence of acute diverticulitis. 3. The [place] kidneys are markedly atrophic and without hydronephrosis. 4. 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 There is been progressive atrophy of the pelvic transplant as compared to the 2014 examination. There is no hydronephrosis. 5. Large hiatal hernia. 6. Additional findings as above. Electronically signed by: Sandip Butler M.D. 11/26/2017 5:19 PM Dictated Date/Time: 11/26/2017 5:14 PM Laboratory Results 11/26/17 16:44 Red Blood Count 3.91, Mean Corpuscular Volume 105.9, Mean Corpuscular Hemoglobin 34.0, Mean Corpuscular Hemoglobin Concent 32.1, Mean Platelet Volume 10.0, Neutrophils (%) (Auto) 82.1, Lymphocytes (%) (Auto) 11.1, Monocytes (%) ( Auto) 5.4, Eosinophils (%) (Auto) 0.8, Basophils (%) (Auto) 0.2, Neutrophils # ( Auto) 8.20, Lymphocytes # (Auto) 1.11, Monocytes # (Auto) 0.54, Eosinophils # ( Auto) 0.08, Basophils # (Auto) 0.02 11/26/17 16:44 Test 11/26/17 16:44 11/26/17 16:49 White Blood Count 9.99 K/uL (4.8-10.8) Red Blood Count 3.91 M/uL (4.2-5.4) Hemoglobin 13.3 g/dL (12.0-16.0) Hematocrit 41.4 % (37-47) Mean Corpuscular Volume 105.9 fL (80-100) Mean Corpuscular Hemoglobin 34.0 pg (25-34) Mean Corpuscular Hemoglobin Concent 32.1 g/dl (32-36) Platelet Count 239 K/uL (130-400) Mean Platelet Volume 10.0 fL (7.4-10.4) Neutrophils (%) (Auto) 82.1 % Lymphocytes (%) (Auto) 11.1 % Monocytes (%) (Auto) 5.4 % Eosinophils (%) (Auto) 0.8 % Basophils (%) (Auto) 0.2 % Neutrophils # (Auto) 8.20 K/uL (1.4-6.5) Lymphocytes # (Auto) 1.11 K/uL (1.2-3.4) Monocytes # (Auto) 0.54 K/uL (0.11-0.59) Eosinophils # (Auto) 0.08 K/uL (0-0.5) Basophils # (Auto) 0.02 K/uL (0-0.2) RDW Standard Deviation 55.8 fL (36.4-46.3) RDW Coefficient of Variation 14.6 % (11.5-14.5) Immature Granulocyte % (Auto) 0.4 % Immature Granulocyte # (Auto) 0.04 K/uL (0.00-0.02) Anion Gap 7.0 mmol/L (3-11) Est Creatinine Clear Calc Drug Dose 17.7 ml/min Estimated GFR () 13.2 Estimated GFR (Non- 11.4 BUN/Creatinine Ratio 6.4 (10-20) Calcium Level 8.8 mg/dl (8.5-10.1) Total Bilirubin 1.1 mg/dl (0.2-1) Direct Bilirubin 0.2 mg/dl (0-0.2) Aspartate Amino Transf (AST/SGOT) 12 U/L (15-37) Alanine Aminotransferase (ALT/SGPT) 14 U/L (12-78) Alkaline Phosphatase 91 U/L (45-117) Total Protein 8.0 gm/dl (6.4-8.2) Albumin 3.6 gm/dl (3.4-5.0) Lipase 119 U/L (73-393) Urine Color YELLOW Urine Appearance CLEAR (CLEAR) Urine pH >= 9.0 (4.5-7.5) Urine Specific Bagley 1.009 (1.000-1.030) Urine Protein NEG (NEG) Urine Glucose (UA) NEG (NEG) Urine Ketones NEG (NEG) Urine Occult Blood NEG (NEG) Urine Nitrite NEG (NEG) Urine Bilirubin NEG (NEG) Urine Urobilinogen NEG (NEG) Urine Leukocyte Esterase MODERATE (NEG) Urine WBC (Auto) 1-5 /hpf (0-5) Urine RBC (Auto) 0-4 /hpf (0-4) Urine Hyaline Casts (Auto) 0 /lpf (0-5) Urine Epithelial Cells (Auto) 5-10 /lpf (0-5) Urine Bacteria (Auto) NEG (NEG) Laboratory results reviewed by me Medications Administered Medications (Trade) Dose Ordered Sig/Fred Route Start Time Stop Time Status Last Admin Dose Admin Amoxicillin/ Clavulanate Potassium (Augmentin Tab) 875 mg ONE ONCE PO 11/26/17 18:15 11/26/17 18:16 DC 11/26/17 18:33 875 MG ED Course 1637: The patient was evaluated in room B6. A complete history and physical exam was performed. 1800: At this time, I updated the patient on her results and the treatment plan. 1815: Ordered Augmentin Tab 875 mg PO 1820: I reevaluated the patient. Discussed results and discharge instructions: She verbalized understanding and agreement. The patient is ready for discharge. Medical Decision Prior records/ancillary studies reviewed. Triage Nursing notes reviewed and agree them. Additional history obtained from her . The patient's history was concerning for abdominal pain. Differential diagnosis: Etiologies such as appendicitis, diverticulitis, PUD, biliary pathology, UTI, pancreatitis, obstruction, mesenteric ischemia, aortic pathology, infections, inflammatory bowel disease, complication of transplant, renal colic, as well as others were entertained. Physical examination findings: As above. ER treatment provided: Oral Augmentin Diagnostics interpreted by me: The labs revealed an unremarkable CBC. Chemistry panel revealed an elevated creatinine consistent with her end-stage renal disease Imaging studies: CT scan as above The patient has right lower quadrant discomfort. She did not have any peritoneal findings. She has a transplant there but it is now being managed. She is getting hemodialysis for the last 2 years. She still makes a small amount of urine so there is likely some functional component left. There did not appear to be any significant abnormalities noted regarding that on CT imaging. She did have a pretty extensive diverticulosis without true evidence of diverticulitis on CT imaging, however this was done without IV or oral contrast given the circumstances. Her initial presentation raises concerns about a mild case of diverticulitis. It is possible that she does have some very mild diverticulitis on the right side and she has a few diverticula there. She does not have a leukocytosis. She is not toxic or febrile. I discussed conservatively treating her with Augmentin for short course with follow-up. She will see her patrol conductor who saw her today on Wednesday. If she worsens over the weekend she will come back. The patient felt very comfortable with this plan. I gave my usual and customary discussion regarding this issue. By the evaluation outlined above other emergent etiologies such as those listed in the differential, as well as others, were deemed relatively unlikely. The patient was educated about the findings as listed above. All questions were answered and the patient was pleased with the treatment. Return instructions were outlined and the patient was discharged in stable condition. The patient was referred to follow nephrology for follow-up for a recheck of the current condition. Medication Reconcilliation Current Medication List: was personally reviewed by me Blood Pressure Screening Patient's blood pressure: Elevated blood pressure Blood pressure disposition: Referred to PCP Impression Primary Impression: RLQ abdominal pain Scribe Attestation The scribe's documentation has been prepared under my direction and personally reviewed by me in its entirety. I confirm that the note above accurately reflects all work, treatment, procedures, and medical decision making performed by me. Departure Information Dispostion Home / Self-Care Prescriptions Amoxicillin & Pot Clavulanate (Augmentin 875-125 mg) 1 Tab Tab 875 MG PO BID for 7 Days, #14 TAB Prov: David Blue MD 11/26/17 Referrals Ian Huang M.D. (PCP) Barb Balderas I., Forms Call Back Authorization, HOME CARE DOCUMENTATION FORM, IMPORTANT VISIT INFORMATION Patient Instructions My [facility] [address] Additional Instructions Amoxicillin Clavulanate (Augmentin) 875mg: Take one pill twice daily for 7 days. All antibiotics can cause diarrhea. If this occurs and you feel worse or it does not resolve in 1-2 days follow up with your doctor or return to the Emergency Department as this could be signs of serious underlying problems. Any medication can cause an allergic reaction, stop the pills immediately and return to the ER for rash, hives, breathing difficulties, or swelling. Acetaminophen(Tylenol) may be used for fever or pain. Use 1000mg every six hours as needed. Avoid using more than 4000mg in a 24 hour period. Rest and drink plenty of fluids as tolerated. Slow sips of water or sports drinks are recommended instead of large amounts all at once. Continue current medications. Return to the ER immediately for worsening or persistent abdominal/back pain, vomiting, fevers, worsening of your condition, or as needed. Follow up with your patrol conductor on Wednesday for a recheck of the current condition.
[2017-11-26] MEDS ORDERED: TACR1CAP PO (21:01)
[2017-11-26] MEDS ORDERED: ASPI81TA28 PO (22:47)
[2017-11-26] MEDS ORDERED: SULF400T7 PO (22:59)
== END 2017-11-26 18:35 | disposition home or self-care (01) ==
LOC: C.EDB 16:21
DX: R10.31 Right lower quadrant pain (principal); N18.3 Chronic kidney disease, stage 3 (moderate); M54.9 Dorsalgia, unspecified; K57.92 Diverticulitis of intestine, part unspecified, without perforation or abscess without bleeding; K21.9 Gastro-esophageal reflux disease without esophagitis; I12.9 Hypertensive chronic kidney disease with stage 1 through stage 4 chronic kidney disease, or unspecified chronic kidney disease; Z79.82 Long term (current) use of aspirin; Z99.2 Dependence on renal dialysis; Z94.0 Kidney transplant status; Z83.3 Family history of diabetes mellitus

== ENCOUNTER → 2018-05-20 | Outpatient (CLI) | payer MEDICARE ==
[~2018-05-20] MED LIST changes: -AMLO2.5T PO; +ASPI81TA28 PO; +CHOL1TAB42 PO; +CYAN100048 SQ; -Citracal PO; +EPGI2M SQ; -EPOETIN IV; -METO25TA3 PO; +NRV/10 PO; +ONDA-170 PO; -ONDA8TAB7 PO; +PRED-301 PO; -PRED10TA PO; +SEVE800T7 PO; +SULF400T7 PO; -Sodium Bicarbonate HM; +TPRSR/25 PO; -VITAMIN D3 PO; -Vitamin B-12 IM; -[UNRECOGNIZED DRUG - CODE] PO
[2018-05-20 17:41] LABS: HEMATOCRIT 36.2 % (37-47); HEMOGLOBIN 11.8 g/dL (12.0-16.0); MEAN CELL VOLUME 107.1 fL (80-100); MEAN CORPUSCULAR HEMOGLOBIN 34.9 pg (25-34); MEAN PLATELET VOLUME 9.6 fL (7.4-10.4); PLATELET COUNT 274 K/uL (130-400); RED CELL DISTRIBUTION WIDTH CV 13.9 % (11.5-14.5); RED CELL DISTRIBUTION WIDTH SD 54.2 fL (36.4-46.3); WHITE BLOOD COUNT 11.06 K/uL (4.8-10.8)
[2018-05-20 17:45] LABS: MEAN CORPUSCULAR HGB CONC 32.6 g/dl (32-36)
== END | disposition home or self-care (01) ==
LOC: C.LAB1850 17:00
PROVIDERS: ATTEND Internal Medicine Cardiovascular Disease
DX: Z01.818 Encounter for other preprocedural examination (principal)

== ENCOUNTER → 2018-05-24 | Outpatient (CLI) | payer MEDICARE | END | disposition home or self-care (01) | LOC: C.PATHSPEC 10:36 | PROVIDERS: ATTEND Urology | DX: Z94.9 Transplanted organ and tissue status, unspecified (principal) ==

== ENCOUNTER → 2018-06-02 | Outpatient (CLI) | payer MEDICARE ==
--- NOTE | 2018-06-02 08:45 | DIAGNOSTIC IMAGING REPORT ---
ABD/PELVIS NO IV OR ORAL CONT CLINICAL HISTORY: 67 years-old Female presenting with R31.29 Hematuria, microscopic. TECHNIQUE: Multidetector CT of the abdomen and pelvis was performed without the use of intravenous contrast. IV contrast: None. A dose lowering technique was used consistent with the principles of ALARA (as low as reasonably achievable). COMPARISON: 11/26/2017. CT DOSE (mGy.cm): The estimated cumulative dose is 1056.70 mGycm. FINDINGS: Paper Sorter And Counter topogram: Unremarkable. Lung bases: Lungs and pleural spaces clear. The intraventricular blood pool is less dense and adjacent myocardium suggesting anemia. Top normal heart size. No pericardial or pleural effusion. Liver: Normal morphology. Normal density. Biliary: No gross biliary ductal dilatation allowing for noncontrast technique. Normal gallbladder. Pancreas: Moderate parenchymal atrophy. Spleen: Normal noncontrast appearance. Adrenal glands: Normal noncontrast appearance. Kidneys and ureters: Severely atrophic gamb[place] kidneys. No hydronephrosis. Cyst suggested at the upper pole the left kidney (series 3 image 1:15), unchanged. Atrophic right lower quadrant renal transplant. No hydronephrosis. Mild pelviectasis of the transplant kidney without hydroureter. No nephrolithiasis. Bladder: Incompletely evaluated secondary to underdistention. Pelvic organs: Uterus surgically absent. No adnexal masses. Bowel: Diverticulosis extensively involving the sigmoid and descending colon with scattered diverticula also noted throughout the remaining colon. No pericolonic inflammatory change. The appendix is normal. No bowel obstruction. Large hilar hernia. Peritoneal cavity: No free fluid or intraperitoneal gas. Lymph nodes: No gross lymphadenopathy allowing for noncontrast technique. Vasculature: Normal noncontrast appearance. Abdominal wall: Postsurgical changes of the right lower quadrant. Musculoskeletal: Degenerative changes of the spine. IMPRESSION: 1. Severe gambell renal atrophy. Suspected small cyst. No evidence of renal mass allowing for noncontrast technique. 2. Chronic atrophy of the right lower quadrant renal transplant. No hydronephrosis. No nephrolithiasis. 3. Under distended bladder. 4. Odom colonic diverticulosis. 5. Large hiatal hernia. 6. Suspected anemia. Electronically signed by: Murphy Garcia M.D. 06/02/2018 8:44 AM Dictated Date/Time: 06/02/2018 8:37 AM
== END | disposition home or self-care (01) ==
LOC: C.CTS 08:20
PROVIDERS: ATTEND Urology
DX: R31.29 Other microscopic hematuria (principal); Z94.9 Transplanted organ and tissue status, unspecified; N26.9 Renal sclerosis, unspecified; K57.30 Diverticulosis of large intestine without perforation or abscess without bleeding; K44.9 Diaphragmatic hernia without obstruction or gangrene

== ENCOUNTER → 2018-06-16 | Outpatient (CLI) | payer MEDICARE ==
[~2018-06-16] MED LIST changes: +REGADENOSON 0.4 MG/5 ML SYR ONE
--- NOTE | 2018-06-17 09:09 | Myocardial Perfusion Study ---
Myocardial Perfusion Study Rpt Myocardial Perfusion Study Rpt Date of Service 06/16/18 Myocardial Perfusion Study Rpt Procedure: 1. Myocardial perfusion study performed in multiple views/images 2. Lexiscan pharmacologic stress ECG Indications: 1. Preoperative evaluation 2. Atrial fibrillation Consent: Informed written consent was obtained prior to the procedure. Ordering physician: Dr. Rodriguez Procedural details: For the stress portion of the study, Lexiscan 0.4 mg was intravenously administered followed by a saline flush. This was followed by 31.8 mCi of technetium 99m Cardiolite, injected at 11:45 a.m. on 06/16/2018. 30 minutes following the injection, imaging of the heart was performed in multiple projections. For the rest portion of the study, 10.5 mCi technetium 99m Cardiolite was injected intravenously at 10:00 a.m. on 06/16/2018. 1 hour following the injection, imaging of the heart was performed in the same projections. Lexiscan stress ECG: Resting ECG demonstrated: Sinus rhythm at 63 bpm. Maximum heart rate: 97 bpm Resting blood pressure: 117/61 mmHg Maximum blood pressure: 154/65 mmHg Maximal, age-predicted heart rate: 62 % Significant ST changes: None Arrhythmia: None Symptoms: None Findings: Rotating raw imaging demonstrated no significant lung uptake. There is no significant motion artifact. Heart size appeared normal. Myocardial perfusion demonstrated increased gastrointestinal uptake in both the post-stress and resting imaging. There is a small to moderate sized area with mildly reduced uptake involving the base to apical inferolateral wall which was fixed in post stress and rest imaging. There is no significant reversible defect. Ejection fraction: 75 % Wall motion: Normal No significant transient ischemic dilation. Impression: 1. Negative myocardial perfusion study for ischemic changes. 2. Fixed base to apical inferolateral defect likely attenuation artifact, given normal wall motion. 3. Hyperdynamic left ventricular systolic function. EF 75%. Normal wall motion. 4. No chest pain reported. 5. Nondiagnostic Lexiscan ECG.
== END | disposition home or self-care (01) ==
LOC: C.NUCL 08:58
PROVIDERS: ATTEND Internal Medicine Cardiovascular Disease
DX: I12.0 Hypertensive chronic kidney disease with stage 5 chronic kidney disease or end stage renal disease (principal); N18.6 End stage renal disease; R00.2 Palpitations; I48.0 Paroxysmal atrial fibrillation; Z01.810 Encounter for preprocedural cardiovascular examination

== ENCOUNTER 2022-08-22 11:27 | Inpatient (IN) ==
[2022-08-22] MEDS ORDERED: SODIUM CHLORIDE 0.9% 1000ML 500 ML IV ONE (11:44)
--- NOTE | 2022-08-22 11:51 | Emergency Department Note ---
Impression & Plan Acute UTI (urinary tract infection), Failure of outpatient treatment, Immunosuppressed status, Sepsis ED Provider Note Name: ZOHREH RAE Age: 71 Sex: F Arrives Via: Walk-In Informant: Patient ED Provider: Ezio Livingston MD Chief Complaint: Illness Impression: Impression above Medical Decision Makin-year-old female arrives for evaluation of fevers, chills, increasing weakness in the setting of UTI has been ongoing for the last 4 weeks. She has tried 2 rounds of Augmentin though it is continued to persist. Review of chart reveals multiple bacterial infections of the bladder over the last few years. She does have a renal transplant and is on Prograf. Blood cultures lactic acid obtained. She was given IV fluids. She is not hypotensive and lactic acid is not significantly elevated. In the setting of her chronic renal disease and no clear evidence of septic shock I do not feel 30/kg fluid is indicated at this time. She does have elevated white blood cell count I feel she is likely septic from this. She was given empiric IV Zosyn for coverage. Given the failure outpatient therapy her previous history and the fact she is immunocompromised I do feel that hospitalization is indicated. Hospitalist then to see her further. She does not require pressors at this time. Prior Medical Record and Triage/Nursing Notes reviewed by Me Additional history obtained from chart Differentials:Viral syndrome, otitis, pharyngitis, pneumonia, influenza, meningitis, urinary tract infection, sepsis, bacteremia, as well as other pathologies. Vital Signs: reviewed and remarkable for mild hypoxia Interventions: IV Zosyn, IV fluids Labs:Reviewed and remarkable for elevated white blood cell count Imaging:X ray results are stated below per my interpretation: Chest: 1 view: No infiltrate, no effusion, normal cardiac border. EKG:Per My Interpretation: Indication Fever: NSR 94 bpm, qtc 422 with PVC. No Ischemia. Compared to EKG 03/10/16, no significant changes. Consults:Hospitalist Plan: Disposition:Hospitalization. Condition: Good History of Present Illness:71-year-old female arrives for evaluation of fevers. Patient with known UTI being treated with Augmentin for the last 28 days. She has had previous renal transplant x2 most recently 3 years ago. She is on Prograf and prednisone. She also takes Eliquis daily along with her other medications. Patient states that she had done 14 days of antibiotics and had improved and she was prescribed another 14. She is getting to the end of her prescription and started having fevers over the last 24 to 48 hours. T-max of 102.7 at home. Tylenol last night improved the fevers. She notes she just feels very fatigued and tired. She denies any nausea, vomiting, syncope, chest pain, shortness of breath, vinay pain, urinary burning, urinary frequency, diarrhea, leg swelling, calf pain, bleeding/bruising or other concerning signs or symptoms. She is had no recent falls, trauma, injury. Patient was advised to come to the ER by her nephrology team at [facility] for further evaluation and likely IV antibiotics. ROS: See above HPI for pertinent positives & negatives. A total of 10 systems reviewed and were otherwise negative. Past Medical History:See Below Past Surgical History:See Below Family History:See Below Social History:See Below Home Medications:See Below Allergies:See Below Vitals:Blood Pressure: 126/71, Pulse 86, RR 20, T 36.7C, O2 92% on RA Physical Exam: GENERAL: Patient is tired appearing and in mild distress. EYES: No scleral icterus, unremarkable pupils. ENT: Mucous membranes moist, no nasal congestion. NECK: No masses appreciated, nomeningismus, trachea is midline. RESPIRATORY: No dyspnea. Clear to auscultation and equal bilaterally. No wheeze, no rhonchi. CARDIOVASCULAR: Regular rate and rhythm.No murmurs, rubs, gallops appreciated. GASTROINTESTINAL: Abdomen soft, non-tender, no peritonitis.Bowel sounds positive.No masses appreciated. BACK: No midline tenderness, no CVA tenderness EXTREMITIES: Normal motion all extremities, no cyanosis, no edema. NEUROLOGIC: Alert and oriented, no acute motor or sensory deficits, no focal weakness, cranial nerves grossly intact. SKIN: No rash, no jaundice, no diaphoresis. PSYCH: Appropriate GCS: 15 ED Course: Times/Reassessments: Patient feeling well no distress and comfortable plan for discharge. Ezio Livingston MD Past Med/Surg History Medical History (Updated 08/23/22 @ 15:14 by Ezio Livingston MD) Anemia Anxiety Aspiration into airway s/p kidney transplant, pt states that she had bleeding ulcer which she vomitted and then aspirated and needed to be intubated- 06/[address] [facility]'s Atrial fibrillation Dx 2 years ago; follows with Dr. 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; s/p kidney transplant x 2 (2001 Rt and 2018 Lt at [facility]) History of esophageal dilatation History of GI bleed History of hemodialysis stopped dialysis 07/2019 following 2nd kidney transplant History of stomach ulcers HTN (hypertension) Migraine (05/02/13) Neurodermatitis Poor historian Stargardts disease Subclavian vein thrombosis, left chronic per doppler 12/2019 [place] - on eliquis 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 doppler 12/2019 [place] - on eliquis Surgical History H/O colonoscopy (06/2015) H/O dilation and curettage History of esophagogastroduodenoscopy (EGD) (06/2019) History of kidney transplant x 2 (2001, 2018) History of wisdom tooth extraction S/P dialysis catheter insertion 1990s Status post CARMEN-BSO Family History (Updated 07/09/22 @ 10:05 by Julita Ruano) Father Diabetes Kidney disease Myocardial infarction Mother Osteoporosis Other No family history of adverse response to anesthesia Denies family history of Ovarian cancer Breast cancer Colorectal cancer Social History Smoking Status: Former smoker Second Hand Exposure: Yes (hx); Hx Alcohol Use: No Hx Substance Use: No Preferred Language: Amharic Communication Ability: Effective Hearing Ability: Normal 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 Beliefs That Will Affect Care: None marital status: Current Living Situation: Spouse Other Information That Helps Us Care for You: No Feels Safe at Home: Yes Safety Concerns: Feels Safe At This Time Assistive Devices: Walker and Wheelchair Allergies Allergies Allergy/AdvReac Type Severity Reaction Status Date / Time urokinase Allergy Severe RESP Verified 08/22/22 15:00 DISTRESS vancomycin Allergy Severe RESP Verified 08/22/22 15:00 DISTRESS salicylates AdvReac Severe AVOIDS Verified 08/22/22 15:00 SECONDARY TO CKD Home Meds Home Medications Medication Instructions Recorded Confirmed acetaminophen 500 mg tablet 500 mg PO Q6H PRN Pain 10/05/19 08/22/22 (Tylenol Extra Strength) apixaban 5 mg tablet (Eliquis) 5 mg PO BID 10/05/19 08/22/22 atorvastatin 10 mg tablet (Lipitor) 10 mg PO QPM 10/05/19 08/22/22 cyanocobalamin (vitamin B-12) 1,000 mcg subcut MO 10/05/19 08/22/22 1,000 mcg/mL injection kit mycophenolate mofetil 500 mg tablet 500 mg PO QAM 10/05/19 08/22/22 prednisone 5 mg tablet 5 mg PO QAM 10/05/19 08/22/22 biotin 1 mg capsule 2 mg PO QPM 12/26/20 08/22/22 cetirizine 10 mg tablet (Zyrtec) 10 mg PO QAM PRN Itching 12/26/20 08/22/22 escitalopram oxalate 20 mg tablet 20 mg PO QPM 12/26/20 08/22/22 (Lexapro) hydroxyzine HCl 10 mg tablet 10 mg PO BID PRN Anxiety 12/26/20 08/22/22 carvedilol 6.25 mg tablet 3.25 mg PO BID 08/10/22 08/22/22 omeprazole 20 mg capsule,delayed 20 mg PO DAILY 08/10/22 08/22/22 release tacrolimus 1 mg capsule, See Rx Instructions .Route .COMPLEX 08/10/22 08/22/22 immediate-release Results & Data (ED) Vital Signs Vital Signs - 24 hr 08/22/22 11:30 Temperature 36.7 C Temperature Source Oral Pulse Rate 86 Respiratory Rate 20 Respiratory Effort / Characteristics Non-Labored Spontaneous Respiratory Depth Normal Respiratory Pattern Regular Blood Pressure 126/71 Blood Pressure Mean 89 Pulse Oximetry 92 Oxygen Delivery Method Room Air Sepsis Recent Fever Within 48 Hours Yes Sepsis New/Unexplained Change in Mental Status No Sepsis Action Taken by Nursing No Action Required Laboratory Data Result diagrams: 08/22/22 12:25 08/22/22 12:25 Lab Results 08/22/22 08/22/22 08/22/22 Range/Units 12:06 12:25 12:25 WBC (4.8-10.8) K/ul RBC (3.93-5.22) M/uL Hgb (12.0-16.0) g/dl Hct (34.1-44.9) % MCV (80.0-100.0) fL MCH (25.0-34.0) pg MCHC (32.0-36.0) g/dL RDW Std Deviation (36.4-46.3) fL RDW Coeff of Clifford (11.5-14.5) % Plt Count (130-400) K/uL MPV (9.4-12.3) fL Immature Gran % (Auto) % Neut % (Auto) % Lymph % (Auto) % Borden % (Auto) % Eos % (Auto) % Baso % (Auto) % Neut # (Auto) (1.4-6.5) K/uL Lymph # (Auto) (1.2-3.4) K/uL Borden # (Auto) (0.24-0.82) K/uL Eos # (Auto) (0-0.50) K/uL Baso # (Auto) (0-0.2) K/uL Immature Gran # (Auto) (0.00-0.02) K/uL Platelet Estimate (Normal) PT (9.0-12.0) Seconds INR (0.9-1.1) Sodium 133 L (136-145) mmol/L Potassium 4.6 (3.5-5.1) mmol/L Chloride 100 (98-107) mmol/L Carbon Dioxide 27 (21-32) mmol/L Anion Gap 6 (3-11) BUN 17 (6-23) mg/dl Creatinine 1.04 (0.6-1.2) mg/dl Est Cr Clr Drug Dosing Not Reportable Est GFR ( Amer) 63.0 ml/min Est GFR (Non-Af Amer) 54.4 ml/min BUN/Creatinine Ratio 16.3 (10-20) Glucose 137 H (70-99(Fasting)) mg/dl Lactate 1.1 (0.4-2.0) mmol/L Calcium 10.4 H (8.5-10.1) mg/dl Magnesium 1.4 L (1.7-2.4) mg/dl Total Bilirubin 1.8 H (0.2-1.0) mg/dl Direct Bilirubin 0.3 H (0-0.2) mg/dl AST 15 (13-39) U/L ALT 12 (7-52) U/L Alkaline Phosphatase 73 (34-104) U/L Troponin I High Sens 22.4 H (0-14) pg/ml C-Reactive Protein 18.45 H (0-0.5) mg/dl Total Protein 6.7 (6.0-8.3) gm/dl Albumin 3.3 L (3.4-5.0) gm/dl Lipase < 3 L (11-82) U/L Procalcitonin (0-0.5) ng/ml Urine Color Dark Yellow Urine Appearance Turbid A (Clear) Urine pH 5.5 (4.5-7.5) Ur Specific Jansen 1.019 (1.000-1.030) Urine Protein 1+ H (Negative) Urine Glucose (UA) Negative (Negative) Urine Ketones Negative (Negative) Urine Blood 2+ H (Negative) Urine Nitrite Positive A (Negative) Urine Bilirubin Negative (Negative) Urine Urobilinogen Negative (Negative) Ur Leukocyte Esterase 3+ H (Negative) Urine WBC (Auto) >30 H (0-5) /hpf Urine RBC (Auto) 10-30 H (0-4) /hpf U Hyaline Cast (Auto) 0 (0-5) /lpf U Epithel Cells (Auto) 5-10 H (0-5) /lpf Urine Bacteria (Auto) 1+ H (Negative) SARS-CoV-2 (PCR) (Negative) Influenza Type A (PCR) (Neg) Influenza Type B (PCR) (Neg) RSV (RT-PCR) (Neg) P. aeruginosa (PCR) (NotDetected) blaIMP Car res Gene PCR (NotDetected) KPC-Carbap Res Gene PCR (NotDetected) blaNDM Car Res Gene PCR (NotDetected) blaVIM Car Res Gene PCR (NotDetected) CTX-M Gene Resistance (PCR) (NotDetected) Bld Cult ID Panel PCR (NotDetected) 08/22/22 08/22/22 08/22/22 Range/Units 12:25 12:25 12:25 WBC 20.20 H (4.8-10.8) K/ul RBC 3.56 L (3.93-5.22) M/uL Hgb 11.2 L (12.0-16.0) g/dl Hct 34.8 (34.1-44.9) % MCV 97.8 (80.0-100.0) fL MCH 31.5 (25.0-34.0) pg MCHC 32.2 (32.0-36.0) g/dL RDW Std Deviation 45.4 (36.4-46.3) fL RDW Coeff of Clifford 12.7 (11.5-14.5) % Plt Count 147 (130-400) K/uL MPV 10.5 (9.4-12.3) fL Immature Gran % (Auto) 0.7 % Neut % (Auto) 89.4 % Lymph % (Auto) 2.7 % Borden % (Auto) 7.0 % Eos % (Auto) 0.0 % Baso % (Auto) 0.2 % Neut # (Auto) 18.04 H (1.4-6.5) K/uL Lymph # (Auto) 0.54 L (1.2-3.4) K/uL Borden # (Auto) 1.42 H (0.24-0.82) K/uL Eos # (Auto) 0.00 (0-0.50) K/uL Baso # (Auto) 0.05 (0-0.2) K/uL Immature Gran # (Auto) 0.15 H (0.00-0.02) K/uL Platelet Estimate Normal (Normal) PT 13.2 H (9.0-12.0) Seconds INR 1.3 H (0.9-1.1) Sodium (136-145) mmol/L Potassium (3.5-5.1) mmol/L Chloride (98-107) mmol/L Carbon Dioxide (21-32) mmol/L Anion Gap (3-11) BUN (6-23) mg/dl Creatinine (0.6-1.2) mg/dl Est Cr Clr Drug Dosing Est GFR ( Amer) ml/min Est GFR (Non-Af Amer) ml/min BUN/Creatinine Ratio (10-20) Glucose (70-99(Fasting)) mg/dl Lactate (0.4-2.0) mmol/L Calcium (8.5-10.1) mg/dl Magnesium (1.7-2.4) mg/dl Total Bilirubin (0.2-1.0) mg/dl Direct Bilirubin (0-0.2) mg/dl AST (13-39) U/L ALT (7-52) U/L Alkaline Phosphatase (34-104) U/L Troponin I High Sens (0-14) pg/ml C-Reactive Protein (0-0.5) mg/dl Total Protein (6.0-8.3) gm/dl Albumin (3.4-5.0) gm/dl Lipase (11-82) U/L Procalcitonin 2.04 H (0-0.5) ng/ml Urine Color Urine Appearance (Clear) Urine pH (4.5-7.5) Ur Specific Jansen (1.000-1.030) Urine Protein (Negative) Urine Glucose (UA) (Negative) Urine Ketones (Negative) Urine Blood (Negative) Urine Nitrite (Negative) Urine Bilirubin (Negative) Urine Urobilinogen (Negative) Ur Leukocyte Esterase (Negative) Urine WBC (Auto) (0-5) /hpf Urine RBC (Auto) (0-4) /hpf U Hyaline Cast (Auto) (0-5) /lpf U Epithel Cells (Auto) (0-5) /lpf Urine Bacteria (Auto) (Negative) SARS-CoV-2 (PCR) (Negative) Influenza Type A (PCR) (Neg) Influenza Type B (PCR) (Neg) RSV (RT-PCR) (Neg) P. aeruginosa (PCR) (NotDetected) blaIMP Car res Gene PCR (NotDetected) KPC-Carbap Res Gene PCR (NotDetected) blaNDM Car Res Gene PCR (NotDetected) blaVIM Car Res Gene PCR (NotDetected) CTX-M Gene Resistance (PCR) (NotDetected) Bld Cult ID Panel PCR (NotDetected) 08/22/22 08/22/22 Range/Units 12:25 12:47 WBC (4.8-10.8) K/ul RBC (3.93-5.22) M/uL Hgb (12.0-16.0) g/dl Hct (34.1-44.9) % MCV (80.0-100.0) fL MCH (25.0-34.0) pg MCHC (32.0-36.0) g/dL RDW Std Deviation (36.4-46.3) fL RDW Coeff of Clifford (11.5-14.5) % Plt Count (130-400) K/uL MPV (9.4-12.3) fL Immature Gran % (Auto) % Neut % (Auto) % Lymph % (Auto) % Borden % (Auto) % Eos % (Auto) % Baso % (Auto) % Neut # (Auto) (1.4-6.5) K/uL Lymph # (Auto) (1.2-3.4) K/uL Borden # (Auto) (0.24-0.82) K/uL Eos # (Auto) (0-0.50) K/uL Baso # (Auto) (0-0.2) K/uL Immature Gran # (Auto) (0.00-0.02) K/uL Platelet Estimate (Normal) PT (9.0-12.0) Seconds INR (0.9-1.1) Sodium (136-145) mmol/L Potassium (3.5-5.1) mmol/L Chloride (98-107) mmol/L Carbon Dioxide (21-32) mmol/L Anion Gap (3-11) BUN (6-23) mg/dl Creatinine (0.6-1.2) mg/dl Est Cr Clr Drug Dosing Est GFR ( Amer) ml/min Est GFR (Non-Af Amer) ml/min BUN/Creatinine Ratio (10-20) Glucose (70-99(Fasting)) mg/dl Lactate (0.4-2.0) mmol/L Calcium (8.5-10.1) mg/dl Magnesium (1.7-2.4) mg/dl Total Bilirubin (0.2-1.0) mg/dl Direct Bilirubin (0-0.2) mg/dl AST (13-39) U/L ALT (7-52) U/L Alkaline Phosphatase (34-104) U/L Troponin I High Sens (0-14) pg/ml C-Reactive Protein (0-0.5) mg/dl Total Protein (6.0-8.3) gm/dl Albumin (3.4-5.0) gm/dl Lipase (11-82) U/L Procalcitonin (0-0.5) ng/ml Urine Color Urine Appearance (Clear) Urine pH (4.5-7.5) Ur Specific Jansen (1.000-1.030) Urine Protein (Negative) Urine Glucose (UA) (Negative) Urine Ketones (Negative) Urine Blood (Negative) Urine Nitrite (Negative) Urine Bilirubin (Negative) Urine Urobilinogen (Negative) Ur Leukocyte Esterase (Negative) Urine WBC (Auto) (0-5) /hpf Urine RBC (Auto) (0-4) /hpf U Hyaline Cast (Auto) (0-5) /lpf U Epithel Cells (Auto) (0-5) /lpf Urine Bacteria (Auto) (Negative) SARS-CoV-2 (PCR) NEGATIVE (Negative) Influenza Type A (PCR) Negative (Neg) Influenza Type B (PCR) Negative (Neg) RSV (RT-PCR) Negative (Neg) P. aeruginosa (PCR) DETECTED A (NotDetected) blaIMP Car res Gene PCR Not Detected (NotDetected) KPC-Carbap Res Gene PCR Not Detected (NotDetected) blaNDM Car Res Gene PCR Not Detected (NotDetected) blaVIM Car Res Gene PCR Not Detected (NotDetected) CTX-M Gene Resistance (PCR) Not Detected (NotDetected) Bld Cult ID Panel PCR See PCR Comment (NotDetected) Administered Medications Acetaminophen (Acetaminophen 325 Mg Tab) 650 mg PO Q4H PRN PRN Reason: Pain or Fever Stop: 09/21/22 15:56 Last Admin: 08/23/22 07:52 Dose: 650 mg Documented By: ROSA ELENA Admin: 08/22/22 20:42 Dose: 650 mg Documented By: FELIX Apixaban (Apixaban 5 Mg Tablet) 5 mg PO BID [facility] Stop: 09/21/22 20:59 Last Admin: 08/23/22 07:53 Dose: 5 mg Documented By: Admin: 08/22/22 20:43 Dose: 5 mg Documented By: FELIX Carvedilol (Carvedilol 6.25 Mg Tab) 3.25 mg PO BID [facility] Stop: 09/21/22 20:59 Last Admin: 08/23/22 07:53 Dose: 3.25 mg Documented By: Admin: 08/22/22 20:44 Dose: 3.25 mg Documented By: FELIX Escitalopram Oxalate (Escitalopram Oxalate 20 Mg Tab) 20 mg PO QPM [facility] Stop: 09/21/22 20:59 Last Admin: 08/22/22 20:47 Dose: 20 mg Documented By: FELIX Cefepime HCl 2,000 mg/ Syringe 20 mls @ 5 mls/min IV Q8 RADHA Stop: 09/02/22 13:59 Last Admin: 08/23/22 14:33 Dose: 5 mls/min Documented By: ROSA ELENA Magnesium Oxide (Magnesium Oxide 400 Mg Tab) 400 mg PO BID RADHA Stop: 09/21/22 14:24 Last Admin: 08/23/22 07:54 Dose: 400 mg Documented By: Admin: 08/22/22 22:08 Dose: 400 mg Documented By: Admin: 08/22/22 16:04 Dose: 400 mg Documented By: ROSA ELENA Mycophenolate Mofetil (Mycophenolate Mofetil 250 Mg Cap) 500 mg PO 1800 RADHA Stop: 09/21/22 17:59 Last Admin: 08/22/22 17:41 Dose: 500 mg Documented By: ROSA ELENA Pantoprazole Sodium (Pantoprazole 40 Mg Tab) 40 mg PO QAM RADHA Stop: 09/22/22 11:44 Last Admin: 08/23/22 12:30 Dose: 40 mg Documented By: Prednisone (Prednisone 5 Mg Tab) 5 mg PO QAM RADHA Stop: 09/22/22 08:59 Last Admin: 08/23/22 07:54 Dose: 5 mg Documented By: ROSA ELENA Tacrolimus (Tacrolimus 1 Mg Cap) 2 mg PO QAM RADHA Stop: 09/22/22 08:59 Last Admin: 08/23/22 07:53 Dose: 2 mg Documented By: Tacrolimus (Tacrolimus 1 Mg Cap) 1 mg PO 1800 RADHA Stop: 09/21/22 17:59 Last Admin: 08/22/22 17:41 Dose: 1 mg Documented By: Discontinued Medications Sodium Chloride (Nss 1000ml) 500 mls @ 999 mls/hr IV .Q31M ONE Stop: 08/22/22 12:14 Last Infusion: 08/22/22 14:51 Dose: 0 mls/hr Documented By: Admin: 08/22/22 13:16 Dose: 999 mls/hr Documented By: WANDY Piperacillin Sod/Tazobactam Sod (Zosyn) 4.5 gm in 120 mls @ 240 mls/hr IV NOW ONE Stop: 08/22/22 13:34 Last Infusion: 08/22/22 14:51 Dose: 0 mls/hr Documented By: Admin: 08/22/22 13:16 Dose: 240 mls/hr Documented By: WANDY Magnesium Sulfate/Dextrose (Magnesium Sulfate / D5w) 1 gm in 100 mls @ 50 mls/hr IV Q2H RADHA Stop: 08/22/22 18:29 Last Infusion: 08/22/22 20:37 Dose: 0 mls/hr Documented By: Admin: 08/22/22 17:41 Dose: 50 mls/hr Documented By: ROSA ELENA Infusion: 08/22/22 17:41 Dose: 50 mls/hr Documented By: ROSA ELENA Admin: 08/22/22 16:05 Dose: 50 mls/hr Documented By: ROSA ELENA Piperacillin Sod/Tazobactam (Sod 4.5 gm/ Dextrose) 120 mls @ 28.75 mls/hr IV Q8H RADHA; Protocol Stop: 09/01/22 16:29 Last Infusion: 08/23/22 06:28 Dose: 0 mls/hr Documented By: Admin: 08/23/22 02:18 Dose: 28.8 mls/hr Documented By: Infusion: 08/22/22 22:03 Dose: 0 mls/hr Documented By: Admin: 08/22/22 17:45 Dose: 28.8 mls/hr Documented By: ROSA ELENA Cefepime HCl 2,000 mg/ Syringe 20 mls @ 5 mls/min IV Q12 RADHA Stop: 09/02/22 08:59 Last Admin: 08/23/22 09:21 Dose: 5 mls/min Documented By: ROSA ELENA Aztreonam 1,000 mg/ Dextrose 110 mls @ 100 mls/hr IV Q8H RADHA; Protocol Stop: 09/02/22 10:29 Last Admin: 08/23/22 10:41 Dose: Not Given Documented By: ROSA ELENA Miscellaneous (Patient's Height &/Or Weight Needed) 1 each N/A Q1H RADHA Stop: 09/21/22 16:14 Last Admin: 08/22/22 16:15 Dose: 1 each Documented By: ROSA ELENA Ondansetron HCl (Ondansetron Inj 2 Mg/Ml 2 Ml Vial) Confirm Administered Dose 4 mg .ROUTE .STK-MED ONE Stop: 08/22/22 14:41 Last Admin: 08/22/22 14:43 Dose: 4 mg Documented By: AMS Discharge Plan Visit Data Chief Complaint: Recheck/Abnormal Lab/Rx Stated Complaint: doc ref fever had antibotics 28 days inf still ED Provider: Ezio Livingston Discharge Problem: Acute UTI (urinary tract infection), Failure of outpatient treatment, Immunosuppressed status, Sepsis Patient Disposition: Admitted As Inpatient Discharge Instructions Interventions: ED Discharge Assessment Last Done: 08/22/22 14:59 : Sepsis Qualifiers: Sepsis type: sepsis due to unspecified organism Sepsis acute organ dysfunction status: without acute organ dysfunction Qualified Code(s): A41.9 - Sepsis, unspecified organism
[2022-08-22 13:00] LABS: Appearance Urine Turbid (Clear); Bacteria Urine Automated 1+ (Negative); Bilirubin Urine Negative (Negative); Blood Urine 2+ (Negative); Cast Urine Automated 0 /lpf (0-5); Color Urine Dark Yellow; Glucose Urine UA Negative (Negative); Ketones Urine Negative (Negative); Leukocyte Esterase Urine 3+ (Negative); Nitrite Urine Positive (Negative); Protein Urine 1+ (Negative); Specific Gravity Urine 1.019 (1.000-1.030); Urobilinogen Urine Negative (Negative); WBC Urine Automated >30 /hpf (0-5); pH Urine 5.5 (4.5-7.5)
[2022-08-22 13:00] LABS: INR 1.3 (0.9-1.1); Prothrombin Time 13.2 Seconds (9.0-12.0)
[2022-08-22 13:03] LABS: Anion Gap 6 (3-11); BUN Creatinine Ratio 16.3 (10-20); Blood Urea Nitrogen 17 mg/dl (6-23); C Reactive Protein 18.45 mg/dl (0-0.5); Calcium 10.4 mg/dl (8.5-10.1); Carbon Dioxide 27 mmol/L (21-32); Chloride 100 mmol/L (98-107); Est GFR (Non-African American) 54.4 ml/min; Glucose 137 mg/dl (70-99(Fasting)); Potassium 4.6 mmol/L (3.5-5.1); Sodium 133 mmol/L (136-145); Troponin I High Sensitivity 22.4 pg/ml (0-14)
[2022-08-22 13:05] LABS: Alanine Aminotransferase 12 U/L (7-52); Albumin Level 3.3 gm/dl (3.4-5.0); Alkaline Phosphatase 73 U/L (34-104); Aspartate Aminotransferase 15 U/L (13-39); Bilirubin Direct 0.3 mg/dl (0-0.2); Bilirubin,Total 1.8 mg/dl (0.2-1.0); Lipase < 3 U/L (11-82); Magnesium 1.4 mg/dl (1.7-2.4); Total Protein 6.7 gm/dl (6.0-8.3)
[2022-08-22] MEDS ORDERED: PIPERACILLIN/TAZOBACTAM 4.5 GM/120 ML BAG IV ONE (13:05)
[2022-08-22 13:17] LABS: Basophils # (auto) 0.05 K/uL (0-0.2); Basophils % (auto) 0.2 %; Hematocrit (blood only) 34.8 % (34.1-44.9); Hemoglobin 11.2 g/dl (12.0-16.0); Immature Granulocytes # (auto) 0.15 K/uL (0.00-0.02); Immature Granulocytes % (auto) 0.7 %; Lymphocytes # (auto) 0.54 K/uL (1.2-3.4); Lymphocytes % (auto) 2.7 %; Mean Corpuscular Hemoglobin 31.5 pg (25.0-34.0); Mean Corpuscular Hgb Conc 32.2 g/dL (32.0-36.0); Mean Corpuscular Volume 97.8 fL (80.0-100.0); Mean Platelet Volume 10.5 fL (9.4-12.3); Monocytes # (auto) 1.42 K/uL (0.24-0.82); Neutrophils # (auto) 18.04 K/uL (1.4-6.5); Neutrophils % (auto) 89.4 %; Platelet Count 147 K/uL (130-400); Platelet Estimate Normal (Normal); RDW Coefficient of Variation 12.7 % (11.5-14.5); RDW Standard Deviation 45.4 fL (36.4-46.3); Red Blood Count 3.56 M/uL (3.93-5.22)
--- NOTE | 2022-08-22 13:42 | History & Physical Report ---
Date of Service August 22, 2022 Assessment & Plan (1) Complicated UTI (urinary tract infection): Plan: Fever, suspect persistent UTI with history of resistance failing Augmentin outpatient treatment UA infected appearing Urine culture pending Blood cultures pending - CXR: 1. Cardiomegaly with chronic interstitial coarsening.2. Moderate sized hiatal hernia. Past urine cultures positive for E. coli (amp/sulbactam intermediate, levoflo xacin resistant, Cipro resistant; ceftriaxone/cefepime sensitive), alpha strep, Enterococcus tetracycline resistant, Citrobacter Rocephin resistant, and Enterobacter Bactrim/Macrobid resistant. Given past Citrobacter cephalosporin resistant and E. coli Augmentin resistant will admit on IV zosyn at this time. CRP 18.45, procalcitonin 2.04. CRP trended, antibiotics as noted CKD, history of renal transplant 2/2 pyelonephritis 2nd transplant 2018 @ [facility] Creatinine 1.04 on admission, estimated GFR 54 Renally dose medications BMP daily - Tac Level 08/20: 6.8, 07/23: 5.9. Goal levels ~3-7 Tacrolimus continue 2 mg a.m., 1 mg p.m. (@6pm). Repeat level pending. Continue mycophenolate 500 mg daily (@6pm per pt) Hypertension Continue carvedilol 3.25 p.o. twice daily Hyperlipidemia Continue atorvastatin 10 mg p.o. every afternoon History of DVTs Continue apixaban 5 mg p.o. twice daily Troponin elevation No known cardiac disease. High sensitive troponin 22.4 No chest pain Suspect demand ischemia EKG with no ST segment changes, nsr Hypomagnesemia 1.4 on admission, repletion ordered Troponin elevation Suspect demand ischemia Without chest pain EKG without findings of ACS Troponin trended, echo ordered. Patient with cardiomegaly on CXR Follow on telemetry overnight West's Esophagus - PPI Anxiety Continue hydroxyzine twice daily as needed Continue Lexapro 20 mg p.o. every afternoon DVT prophylaxis: Anticoagulated for paroxysmal A. fib and history of chronic venous thrombosis Diet: Heart healthy Disposition: Medical telemetry CODE STATUS: Full code discussed with patient, surrogate decision maker would be her (2) Hypothyroidism: (3) Hypertension: (4) Hypercholesterolemia: (5) West's esophagus: History of Present Illness Primary Care Provider: Ian Huang Joann Powell is a 71-year-old female with a past medical history of renal transplant x2, last 3 years ago currently on prednisone, mycophenolate, and tacrolimus who was treated for a UTI with Augmentin 28 days ago with course extension after 14 days who presents with recurrent fevers over the last 24-48 hours. Fever does improve with Tylenol, has associated fatigue and general malaise. Has not had chest pain, chest pressure, shortness of breath, diffi culty breathing, lightheadedness, dizziness. 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 On ER evaluation she has a leukocytosis increased from 10.94 on 08/20 up to 20.2 with neutrophilia. Hemoglobin 11.2. INR is 1.3 on DOAC. High-sensitivity troponin is 22.4, CRP is 18.45 with no prior baseline, procalcitonin is 2.04. UA is infected appearing with 1+ bacteria, leukocyte esterase, nitrites, blood, and protein. Feverish feeling x 5 days, 102*F temperature last night. Nausea all week. Taking 3x tyelnol yesterday 1x 6pm, 2x at 2200. 28 days ago was dx with a UTI. Does regular labs monthly for [place]. Had an elevated WBC, felt generally tired with dysuria. Started on Augmentin x14 and felt better. Katie toff for 2 days, then sx recurred with bladder pressure --> 2nd 14 day course. [place] worse in the last 7 days. +feverish but without actual fever until last night when it went to 102*F. Last two days burning is still there maybe a little less, but still feels very wiped out and feverish and couldn't go to work from fatigue. Some shortness of breath x1 week with exertion and more fatigue than usual. Denies past/current chest pain/chest pressure. No cough, no productive cough during the day. Some nighttime dry cough. has record of UA/UC. Renal transplant x2, last 3 years ago. MedRec:Cellcept 500mg AM Tacrolimus 2mg AM, 1mg PM Eliquis 5mg BID Atorva 10mg qHS Coreg 3.125mg BID LExapro 20mg hs b12 montly 1000mcg Hydroxyzine 10mg PRN Prednisone 5mg dialy +OTC. next meds due at 6pm (prograf). Has not missed any doses. Tac Level 08/20: 6.8, 07/23: 5.9 Medical History: Reviewed Medications: Reviewed Surgical History: Reviewed Allergies: Reviewed Social History: Denies tobacco/alcohol Code Status: Full code Allergies Allergy/AdvReac Type Severity Reaction Status Date / Time urokinase Allergy Severe RESP Verified 08/10/22 13:54 DISTRESS vancomycin Allergy Severe RESP Verified 08/10/22 13:54 DISTRESS salicylates AdvReac Severe AVOIDS Verified 08/10/22 13:54 SECONDARY TO CKD Home Medications Medication Instructions Recorded Confirmed Type acetaminophen 500 mg tablet 500 mg PO Q6H PRN Pain 10/05/19 08/10/22 History (Tylenol Extra Strength) apixaban 5 mg tablet (Eliquis) 5 mg PO BID 10/05/19 08/10/22 History atorvastatin 10 mg tablet (Lipitor) 10 mg PO QPM 10/05/19 08/10/22 History cyanocobalamin (vitamin B-12) 1,000 mcg subcut MO 10/05/19 08/10/22 History 1,000 mcg/mL injection kit mycophenolate mofetil 500 mg tablet 500 mg PO QAM 10/05/19 08/10/22 History prednisone 5 mg tablet 5 mg PO QAM 10/05/19 08/10/22 History biotin 1 mg capsule 2 mg PO QPM 12/26/20 08/10/22 History cetirizine 10 mg tablet (Zyrtec) 10 mg PO QAM PRN Itching 12/26/20 08/10/22 History escitalopram oxalate 20 mg tablet 20 mg PO QPM 12/26/20 08/10/22 History (Lexapro) hydroxyzine HCl 10 mg tablet 10 mg PO BID PRN Anxiety 12/26/20 08/10/22 History carvedilol 6.25 mg tablet 3.25 mg PO BID 08/10/22 08/10/22 History omeprazole 20 mg capsule,delayed 20 mg PO DAILY 08/10/22 08/10/22 History release tacrolimus 1 mg capsule, 1 mg PO BID 08/10/22 08/10/22 History immediate-release Past Med/Surg History Medical History (Updated 08/22/22 @ 14:15 by Murphy Jordan MD) Anemia Anxiety Aspiration into airway s/p kidney transplant, pt states that she had bleeding ulcer which she vomitted and then aspirated and needed to be intubated- 06/2019 at [facility]'s Atrial fibrillation Dx 2 years ago; follows with Dr. 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; s/p kidney transplant x 2 (2001 Rt and 2018 Lt at [facility]) History of esophageal dilatation History of GI bleed History of hemodialysis stopped dialysis 07/2019 following 2nd kidney transplant History of stomach ulcers HTN (hypertension) Migraine (05/02/13) Neurodermatitis Poor historian Stargardts disease Subclavian vein thrombosis, left chronic per doppler 12/2019 [place] - on eliquis 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 doppler 12/2019 [place] - on eliquis Surgical History H/O colonoscopy (06/2015) H/O dilation and curettage History of esophagogastroduodenoscopy (EGD) (06/2019) History of kidney transplant x 2 (2001, 2018) History of wisdom tooth extraction S/P dialysis catheter insertion 1990s Status post CARMEN-BSO Family History (Updated 07/09/22 @ 10:05 by Julita Ruano) Father Diabetes Kidney disease Myocardial infarction Mother Osteoporosis Other No family history of adverse response to anesthesia Denies family history of Ovarian cancer Breast cancer Colorectal cancer Social History Smoking Status: Never smoker Second Hand Exposure: Yes (hx); Hx Alcohol Use: No Hx Substance Use: No Preferred Language: Icelandic Communication Ability: Effective Hearing Ability: Normal Rose Grower Required: No Beliefs That Will Affect Care: Jainism Jainism Beliefs: Scientologist marital status: Current Living Situation: Spouse Feels Safe at Home: Yes Assistive Devices: None Review of Systems Review of Systems: All systems reviewed & are unremarkable except as noted in Subjective Physical Exam Physical Exam: General: A&Ox3. NAD. Cooperative. Skin warm, moist. HEENT: Atraumatic, normocephalic. PERLAA. EoM intact. Pulm: CTAB A&P. -wheezes, -rales, -rhonchi. Symmetrical chest rise. No increased work of breathing. No respiratory distress. Cardiac: RRR, -mrg. Radial pulses intact and symmetrical. Abdominal: Nontender, nondistended, soft. BS present. Ext: warm, dry. Moves tino xtremities equally. Results & Data Results & Data ([facility]) Vital Signs (Past 12 Hours) Vital Signs Temp Pulse Resp BP Pulse Ox O2 Del Method 08/22/22 11:30 36.7 C 86 20 126/71 92 Room Air PG Care Time/CCT Total # of Minutes Spent Total Time Spent with Patient: Total time spent is greater than 50% in coordination of care (as documented) at patient's floor/unit and/or counseling patient: Coding Level of Care Code 35640 Initial Inpt Care Lvl 3 Diagnoses Complicated UTI (urinary tract infection) N39.0 Hypothyroidism E03.9 Hypertension I10 Hypercholesterolemia E78.00 West's esophagus K22.70
--- NOTE | 2022-08-22 13:49 | XRay Report ---
XR chest 1V portable HISTORY: 71 years-old Female Weakness, fever acute weakness with fever COMPARISON: Chest radiographs 07/07/2018 TECHNIQUE: AP view of the chest FINDINGS: Cardiomediastinal and hilar silhouettes are unchanged. Chronic interstitial coarsening. Hiatal hernia . No pneumothorax, large pleural effusion or overt pulmonary edema. Degenerative changes of the shoul ders and spine. IMPRESSION: 1. Cardiomegaly with chronic interstitial coarsening. 2. Moderate sized hiatal hernia. ACT 112: Negative or not required by law. The above report was generated using voice recognition software. It may contain grammatical, syntax o r spelling errors. Electronically signed by: Mac Matta M.D. 08/22/2022 1:47 PM
[2022-08-22 14:14] LABS: Influenza A virus by PCR Negative (Neg); Influenza B virus by PCR Negative (Neg); RSV by PCR Negative (Neg); SARS CoV2 RNA(COVID-19)Cepheid NEGATIVE (Negative)
[2022-08-22] MEDS ORDERED: ONDANSETRON INJ 2 MG/ML 2 ML VIAL ONE (14:40)
[2022-08-22] MEDS ORDERED: ONDANSETRON INJ 2 MG/ML 2 ML VIAL IV PRN (15:57)
[2022-08-22] MEDS ORDERED: hydrOXYzine HCl 10 MG TAB PO PRN (15:57)
[2022-08-22] MEDS ORDERED: MAGNESIUM HYDROXIDE SUSP 30 ML UDC PO PRN (15:57)
[2022-08-22] MEDS ORDERED: POLYETHYLENE (MIRALAX) 17 GM PACK PO PRN (15:57)
[2022-08-22] MEDS: MAGNESIUM OXIDE 400 MG TAB PO SCH ×2 (16:04→22:08)
[2022-08-22] MEDS: MAGNESIUM SULFATE / D5W 1 GM/100 ML BAG IV SCH ×2 (16:05→17:41)
[2022-08-22] MEDS ORDERED: Patient's HEIGHT &/or WEIGHT Needed SCH (16:15)
[2022-08-22] MEDS: TACROLIMUS 1 MG CAP PO SCH (17:41)
[2022-08-22] MEDS: MYCOPHENOLATE MOFETIL 250 MG CAP PO SCH (17:41)
[2022-08-22] MEDS: PIPERACILLIN/TAZOBACTAM 4.5 GM in DEXTROSE 5% 100 ML IV SCH (17:45)
[2022-08-22] MEDS: ACETAMINOPHEN 325 MG TAB PO PRN (20:42)
[2022-08-22] MEDS: APIXABAN 5 MG TABLET PO SCH (20:43)
[2022-08-22] MEDS: carvediloL 6.25 MG TAB PO SCH (20:44)
[2022-08-22] MEDS: ESCITALOPRAM OXALATE 20 MG TAB PO SCH (20:47)
[2022-08-23] MEDS: PIPERACILLIN/TAZOBACTAM 4.5 GM in DEXTROSE 5% 100 ML IV SCH (02:18)
[2022-08-23] MEDS: ACETAMINOPHEN 325 MG TAB PO PRN (07:52)
[2022-08-23] MEDS: TACROLIMUS 1 MG CAP PO SCH ×2 (07:53→17:34)
[2022-08-23] MEDS: carvediloL 6.25 MG TAB PO SCH ×2 (07:53→20:02)
[2022-08-23] MEDS: APIXABAN 5 MG TABLET PO SCH ×2 (07:53→20:03)
[2022-08-23] MEDS: predniSONE 5 MG TAB PO SCH (07:54)
[2022-08-23] MEDS: MAGNESIUM OXIDE 400 MG TAB PO SCH ×2 (07:54→20:03)
--- NOTE | 2022-08-23 08:14 | Hospitalist Progress Note ---
Date of Service August 23, 2022 Assessment & Plan (1) Complicated UTI (urinary tract infection): Plan: Persistent UTI with history of resistance failing Augmentin outpatient treatment UA infected appearing Urine culture pseudomonas Blood cultures pending - CXR: 1. Cardiomegaly with chronic interstitial coarsening.2. Moderate sized hiatal hernia. Past urine cultures positive for E. coli (ampresistant, levofloxacin resistant, Cipro resistant; ceftriaxone/cefepime sensitive), alpha strep, Enterococcus tetracycline resistant, Citrobacter Rocephin resistant, and Enterobacter Bactrim/Macrobid resistant. Given past Citrobacter cephalosporin resistant and E. coli Augmentin resistant CRP 18.45, procalcitonin 2.04. CRP trended -given zosyn in ED, switched to cefepime given likely penicillin resistance CKD, history of renal transplant 2/2 pyelonephritis 2nd transplant 2018 @ [place] Creatinine 1.04 on admission, estimated GFR 54 Renally dose medications BMP daily - Tac Level 08/20: 6.8, 07/23: 5.9. Goal levels ~3-7 Tacrolimus continue 2 mg a.m., 1 mg p.m. (@6pm). Repeat level pending. Continue mycophenolate 500 mg daily (@6pm per pt) Hypertension Continue carvedilol 3.25 p.o. twice daily Hyperlipidemia Continue atorvastatin 10 mg p.o. every afternoon History of DVTs Continue apixaban 5 mg p.o. twice daily Troponin elevation No known cardiac disease. High sensitive troponin 22.4 No chest pain Suspect demand ischemia EKG with no ST segment changes, nsr Hypomagnesemia 1.4 on admission, repletion ordered Troponin elevation Suspect demand ischemia Without chest pain EKG without findings of ACS Troponin downtrending -echo EF 60-65% severe LA dilation, mod pulm HTN -Patient with cardiomegaly on CXR Follow on telemetry West's Esophagus - PPI Anxiety Continue hydroxyzine twice daily as needed Continue Lexapro 20 mg p.o. every afternoon DVT prophylaxis: Anticoagulated for paroxysmal A. fib and history of chronic venous thrombosis Diet: Heart healthy Disposition: Medical telemetry CODE STATUS: Full code discussed with patient, surrogate decision maker would be her (2) Hypothyroidism: (3) Hypertension: (4) Hypercholesterolemia: (5) West's esophagus: Admission and Anticipated Discharge Date Admission Date: August 22, 2022 Supervising Physician Co-Signing Physician Notes I personally examined the patient and verified all whitaker points of history and exam, discussed case, and agree with decision making with Dr Lamas. Feeling better. No new complaints. Updated to the best my ability and her and satisfaction. Vitals noted, in general she is awake and alert pleasant no distress. HEENT no rmocephalic atraumatic mucous membranes moist. Breathing unlabored no accessory muscle use good effort. Skin shows no rashes no pallor or icterus. Complicated UTI with subsequent bacteremia (gram-negative) in an immunocompromised solid organ transplant recipient host on chronic immunosuppressive therapycontinue cefepime pending sensitivities. Discussed with patient and high probability of needing to go home on IV antibiotics (and less, but good fortune, the Pseudomonas turns out to be quinolone sensitive). Fortunately quite stable. Otherwise as above Subjective Patient seen at bedside, calm comfortable cooperative. She states she feels better as of this morning, denies SOB lessened cp pain, mild abd bloating resolved at this time. Patient states she tolerated breakfast well no nausea vomitting. She understands we are waiting on cultures to determine what antibiotic regime will suit her best. 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 Patient aware we have switched her antibiotics to avoid further episodes of confusion. Her only allergy to abx is vancomycin and urokinase. Patient has history 2 kidney transplants first no longer works second was placed 3 years ago. Review of Systems Review of Systems: Negative fever chills Negative headache dizziness Negative palpitations SOB Negative nausea vomitting diarrhea constipation Physical Exam Constitutional: WD/WN, vitals as above Eyes: PERRL, conjunctivae normal, anicteric sclerae ENMT: external ear and nose normal, oropharynx normal Neck: trachea midline, no thyromegaly Respiratory: normal respiratory effort, lungs clear to auscultation Chest (Breasts): Chest: normal inspection of chest Gastrointestinal (Abdomen): Inspection/Auscultation: abdomen normal to inspection Percussion/Palpation: abdomen soft; abdomen nontender Skin: no rashes, warm and dry Psychiatric: A+Ox3, euthymic affect Results & Data Results & Data ([facility]) Vital Signs (Past 12 Hours) Vital Signs Temp Pulse Pulse Resp BP Pulse Ox O2 Del Method 08/23/22 07:45 37.7 C H 84 20 108/63 95 08/23/22 07:13 84 08/23/22 03:19 36.4 C L 68 20 113/73 99 Nasal Cannula 08/23/22 00:52 70 08/22/22 23:00 37.1 C 74 20 104/61 97 Nasal Cannula 08/22/22 21:12 Nasal Cannula O2 Flow Rate 08/23/22 07:45 08/23/22 07:13 08/23/22 03:19 3 08/23/22 00:52 08/22/22 23:00 3 08/22/22 21:12 2 Diagnostic Findings Laboratory Results WBC 20.20 K/ul (4.8-10.8) H 08/22/22 12:25 RBC 3.56 M/uL (3.93-5.22) L 08/22/22 12:25 Hgb 11.2 g/dl (12.0-16.0) L 08/22/22 12:25 Hct 34.8 % (34.1-44.9) 08/22/22 12:25 MCV 97.8 fL (80.0-100.0) 08/22/22 12:25 MCH 31.5 pg (25.0-34.0) 08/22/22 12:25 MCHC 32.2 g/dL (32.0-36.0) 08/22/22 12:25 RDW Std Deviation 45.4 fL (36.4-46.3) 08/22/22 12:25 RDW Coeff of Clifford 12.7 % (11.5-14.5) 08/22/22 12:25 Plt Count 147 K/uL (130-400) 08/22/22 12:25 MPV 10.5 fL (9.4-12.3) 08/22/22 12:25 Immature Gran % (Auto) 0.7 % 08/22/22 12:25 Neut % (Auto) 89.4 % 08/22/22 12:25 Lymph % (Auto) 2.7 % 08/22/22 12:25 [place] % (Auto) 7.0 % 08/22/22 12:25 Eos % (Auto) 0.0 % 08/22/22 12:25 Baso % (Auto) 0.2 % 08/22/22 12:25 Neut # (Auto) 18.04 K/uL (1.4-6.5) H 08/22/22 12:25 Lymph # (Auto) 0.54 K/uL (1.2-3.4) L 08/22/22 12:25 [place] # (Auto) 1.42 K/uL (0.24-0.82) H 08/22/22 12:25 Eos # (Auto) 0.00 K/uL (0-0.50) 08/22/22 12:25 Baso # (Auto) 0.05 K/uL (0-0.2) 08/22/22 12:25 Immature Gran # (Auto) 0.15 K/uL (0.00-0.02) H 08/22/22 12:25 Platelet Estimate Normal (Normal) 08/22/22 12:25 PT 13.2 Seconds (9.0-12.0) H 08/22/22 12:25 INR 1.3 (0.9-1.1) H 08/22/22 12:25 Sodium 133 mmol/L (136-145) L 08/22/22 12:25 Potassium 4.6 mmol/L (3.5-5.1) 08/22/22 12:25 Chloride 100 mmol/L (98-107) 08/22/22 12:25 Carbon Dioxide 27 mmol/L (21-32) 08/22/22 12:25 Anion Gap 6 (3-11) 08/22/22 12:25 BUN 17 mg/dl (6-23) 08/22/22 12:25 Creatinine 1.04 mg/dl (0.6-1.2) 08/22/22 12:25 Est Cr Clr Drug Dosing Not Reportable 08/22/22 12:25 Est GFR ( Amer) 63.0 ml/min 08/22/22 12:25 Est GFR (Non-Af Amer) 54.4 ml/min 08/22/22 12:25 BUN/Creatinine Ratio 16.3 (10-20) 08/22/22 12:25 Glucose 137 mg/dl (70-99(Fasting)) H 08/22/22 12:25 Lactate 1.1 mmol/L (0.4-2.0) 08/22/22 12:25 Calcium 10.4 mg/dl (8.5-10.1) H 08/22/22 12:25 Magnesium 2.1 mg/dl (1.7-2.4) 08/23/22 03:47 Total Bilirubin 1.8 mg/dl (0.2-1.0) H 08/22/22 12:25 Direct Bilirubin 0.3 mg/dl (0-0.2) H 08/22/22 12:25 AST 15 U/L (13-39) 08/22/22 12:25 ALT 12 U/L (7-52) 08/22/22 12:25 Alkaline Phosphatase 73 U/L (34-104) 08/22/22 12:25 Troponin I High Sens 14.2 pg/ml (0-14) H 08/23/22 09:49 C-Reactive Protein 18.45 mg/dl (0-0.5) H 08/22/22 12:25 Total Protein 6.7 gm/dl (6.0-8.3) 08/22/22 12:25 Albumin 3.3 gm/dl (3.4-5.0) L 08/22/22 12:25 Lipase < 3 U/L (11-82) L 08/22/22 12:25 Procalcitonin 2.04 ng/ml (0-0.5) H 08/22/22 12:25 Urine Color Dark Yellow 08/22/22 12:06 Urine Appearance Turbid (Clear) A 08/22/22 12:06 Urine pH 5.5 (4.5-7.5) 08/22/22 12:06 Ur Specific [place] 1.019 (1.000-1.030) 08/22/22 12:06 Urine Protein 1+ (Negative) H 08/22/22 12:06 Urine Glucose (UA) Negative (Negative) 08/22/22 12:06 Urine Ketones Negative (Negative) 08/22/22 12:06 Urine Blood 2+ (Negative) H 08/22/22 12:06 Urine Nitrite Positive (Negative) A 08/22/22 12:06 Urine Bilirubin Negative (Negative) 08/22/22 12:06 Urine Urobilinogen Negative (Negative) 08/22/22 12:06 Ur Leukocyte Esterase 3+ (Negative) H 08/22/22 12:06 Urine WBC (Auto) >30 /hpf (0-5) H 08/22/22 12:06 Urine RBC (Auto) 10-30 /hpf (0-4) H 08/22/22 12:06 U Hyaline Cast (Auto) 0 /lpf (0-5) 08/22/22 12:06 U Epithel Cells (Auto) 5-10 /lpf (0-5) H 08/22/22 12:06 Urine Bacteria (Auto) 1+ (Negative) H 08/22/22 12:06 SARS-CoV-2 (PCR) NEGATIVE (Negative) 08/22/22 12:47 Influenza Type A (PCR) Negative (Neg) 08/22/22 12:47 Influenza Type B (PCR) Negative (Neg) 08/22/22 12:47 RSV (RT-PCR) Negative (Neg) 08/22/22 12:47 P. aeruginosa (PCR) DETECTED (NotDetected) A 08/22/22 12:25 blaIMP Car res Gene PCR Not Detected (NotDetected) 08/22/22 12:25 KPC-Carbap Res Gene PCR Not Detected (NotDetected) 08/22/22 12:25 blaNDM Car Res Gene PCR Not Detected (NotDetected) 08/22/22 12:25 blaVIM Car Res Gene PCR Not Detected (NotDetected) 08/22/22 12:25 CTX-M Gene Resistance (PCR) Not Detected (NotDetected) 08/22/22 12:25 Bld Cult ID Panel PCR See PCR Comment (NotDetected) 08/22/22 12:25 Impressions Chest X-Ray 08/22/22 11:51 XR chest 1V portable HISTORY: 71 years-old Female Weakness, fever acute weakness with fever COMPARISON: Chest radiographs 07/07/2018 TECHNIQUE: AP view of the chest FINDINGS: Cardiomediastinal and hilar silhouettes are unchanged. Chronic interstitial coarsening. Hiatal hernia. No pneumothorax, large pleural effusion or overt pulmonary edema. Degenerative changes of the shoulders and spine. IMPRESSION: 1. Cardiomegaly with chronic interstitial coarsening. 2. Moderate sized hiatal hernia. ACT 112: Negative or not required by law. The above report was generated using voice recognition software. It may contain grammatical, syntax or spelling errors. Electronically signed by: Mac Matta M.D. 08/22/2022 1:47 PM Medications Administered Current Inpatient Medications Acetaminophen (Acetaminophen 325 Mg Tab) 650 mg PO Q4H PRN PRN Reason: Pain or Fever Stop: 09/21/22 15:56 Last Admin: 08/23/22 07:52 Dose: 650 mg Apixaban (Apixaban 5 Mg Tablet) 5 mg PO BID RADHA Stop: 09/21/22 20:59 Last Admin: 08/23/22 07:53 Dose: 5 mg Carvedilol (Carvedilol 6.25 Mg Tab) 3.25 mg PO BID RADHA Stop: 09/21/22 20:59 Last Admin: 08/23/22 07:53 Dose: 3.25 mg Escitalopram Oxalate (Escitalopram Oxalate 20 Mg Tab) 20 mg PO QPM RADHA Stop: 09/21/22 20:59 Last Admin: 08/22/22 20:47 Dose: 20 mg Hydroxyzine HCl (Hydroxyzine Hcl 10 Mg Tab) 10 mg PO BID PRN PRN Reason: Anxiety Stop: 09/21/22 15:56 Cefepime HCl 2,000 mg/ Syringe 20 mls @ 5 mls/min IV Q8 RADHA Stop: 09/02/22 13:59 Magnesium Hydroxide (Magnesium Hydroxide Susp 30 Ml Udc) 30 ml PO Q12H PRN PRN Reason: Constipation Stop: 09/21/22 15:56 Magnesium Oxide (Magnesium Oxide 400 Mg Tab) 400 mg PO BID RADHA Stop: 09/21/22 14:24 Last Admin: 08/23/22 07:54 Dose: 400 mg Mycophenolate Mofetil (Mycophenolate Mofetil 250 Mg Cap) 500 mg PO 1800 RADHA Stop: 09/21/22 17:59 Last Admin: 08/22/22 17:41 Dose: 500 mg Ondansetron HCl (Ondansetron Inj 2 Mg/Ml 2 Ml Vial) 4 mg IV Q6H PRN PRN Reason: Nausea Stop: 09/21/22 15:56 Pantoprazole Sodium (Pantoprazole 40 Mg Tab) 40 mg PO QAM RAHDA Stop: 09/22/22 11:44 Last Admin: 08/23/22 12:30 Dose: 40 mg Polyethylene Glycol (Polyethylene (Miralax) 17 Gm Pack) 17 gm PO DAILY PRN PRN Reason: Constipation Stop: 09/21/22 15:56 Prednisone (Prednisone 5 Mg Tab) 5 mg PO QAM [facility] Stop: 09/22/22 08:59 Last Admin: 08/23/22 07:54 Dose: 5 mg Tacrolimus (Tacrolimus 1 Mg Cap) 2 mg PO QAM [facility] Stop: 09/22/22 08:59 Last Admin: 08/23/22 07:53 Dose: 2 mg Tacrolimus (Tacrolimus 1 Mg Cap) 1 mg PO 1800 [facility] Stop: 09/21/22 17:59 Last Admin: 08/22/22 17:41 Dose: 1 mg Resident Activity Tracking Resident Involvement: Resident Care Provided Care Provided: Adult Hospital Medicine
--- NOTE | 2022-08-23 08:36 | XCELERA ---
[id number] [id number]
[2022-08-23] MEDS ORDERED: CEFEPIME 2,000 MG in SYRINGE 0 ML IV SCH (09:00)
[2022-08-23 09:58] LABS: A calco-baum cmplx NotReported Not Detected (NotDetected); Bact fragilis Not Reported Not Detected (NotDetected); C auris Not Reported Not Detected (NotDetected); CTX-M Resistant Gene Not Detected (NotDetected); Calbicans Not Reported Not Detected (NotDetected); Candida glabrata Not Reported Not Detected (NotDetected); Candida krusei Not Reported Not Detected (NotDetected); Cneoformans/gatti Not Reported Not Detected (NotDetected); Cparapsilosis Not Reported Not Detected (NotDetected); Ctropicalis Not Reported Not Detected (NotDetected); E cloacae compx Not Reported Not Detected (NotDetected); Efaecalis Not Reported Not Detected (NotDetected); Efaecium Not Reported Not Detected (NotDetected); Enterobacterales Not Reported Not Detected (NotDetected); Escherichia coli Not Reported Not Detected (NotDetected); H influenzae Not Reported Not Detected (NotDetected); IMP Resistant Gene Not Detected (NotDetected); K aerogenes Not Reported Not Detected (NotDetected); KPC Resistant Gene Not Detected (NotDetected); Koxytoca Not Reported Not Detected (NotDetected); Kpneumoniae grp Not Reported Not Detected (NotDetected); Lmonocyt Not Reported Not Detected (NotDetected); N meningitidis Not Reported Not Detected (NotDetected); NDM Resistant Gene Not Detected (NotDetected); P aeruginosa Not Reported DETECTED (NotDetected); Proteus spp Not Reported Not Detected (NotDetected); Salmonella spp Not Reported Not Detected (NotDetected); Smarcescens Not Reported Not Detected (NotDetected); Staph lugdunensis Not Reported Not Detected (NotDetected); Staph spp. Not Reported Not Detected (NotDetected); Staphaureus Not Reported Not Detected (NotDetected); Staphepi Not Reported Not Detected (NotDetected); Stenmaltophilia Not Reported Not Detected (NotDetected); Strep agal(GrpB) Not Reported Not Detected (NotDetected); Strep pneum Not Reported Not Detected (NotDetected); Strep pyog (GrpA) Not Reported Not Detected (NotDetected); Strep spp Not Reported Not Detected (NotDetected); VIM Resistant Gene Not Detected (NotDetected)
[2022-08-23 10:04] LABS: Pseudomonas aeruginosa DETECTED (NotDetected)
[2022-08-23] MEDS ORDERED: AZTREONAM 1,000 MG in DEXTROSE 5% 100 ML IV SCH (10:30)
[2022-08-23] MEDS: PANTOprazole 40 MG TAB PO SCH (12:30)
[2022-08-23] MEDS: CEFEPIME 2,000 MG in SYRINGE 0 ML IV SCH ×2 (14:33→21:09)
[2022-08-23] MEDS: MYCOPHENOLATE MOFETIL 250 MG CAP PO SCH (17:33)
--- NOTE | 2022-08-23 18:45 | Billing Data ---
Date of Service August 23, 2022 Coding Level of Care Code 48015 Subseq Hosp Care Lvl 3
[2022-08-23] MEDS: ESCITALOPRAM OXALATE 20 MG TAB PO SCH (20:03)
--- NOTE | 2022-08-23 20:54 | Electrocardiogram Report ---
Test Reason : Blood Pressure : / mmHG Vent. Rate : 094 BPM Atrial Rate : 094 BPM P-R Int : 138 ms QRS Dur : 076 ms QT Int : 338 ms P-R-T Axes : 044 019 -08 degrees QTc Int : 422 ms Poor data quality, interpretation may be adversely affected Sinus rhythm with occasional Premature ventricular complexes Cannot rule out Anterior infarct , age undetermined Nonspecific T wave abnormality Abnormal ECG When compared with ECG of 10-MAR-2016 13:55, Premature ventricular complexes are now Present Confirmed by Terell Massey ([id number]) on 08/23/2022 8:53:56 PM Referred By: REFERRED SELF Confirmed By:Terell Massey
[2022-08-24] MEDS: ACETAMINOPHEN 325 MG TAB PO PRN (00:55)
[2022-08-24] MEDS: CEFEPIME 2,000 MG in SYRINGE 0 ML IV SCH ×3 (05:06→21:04)
[2022-08-24 06:58] LABS: Hematocrit (blood only) 32.5 % (34.1-44.9); Hemoglobin 10.3 g/dl (12.0-16.0); Mean Corpuscular Hemoglobin 31.1 pg (25.0-34.0); Mean Corpuscular Hgb Conc 31.7 g/dL (32.0-36.0); Mean Corpuscular Volume 98.2 fL (80.0-100.0); Mean Platelet Volume 10.8 fL (9.4-12.3); Platelet Count 134 K/uL (130-400); RDW Coefficient of Variation 12.8 % (11.5-14.5); RDW Standard Deviation 46.2 fL (36.4-46.3); Red Blood Count 3.31 M/uL (3.93-5.22); White Blood Count 7.44 K/ul (4.8-10.8)
[2022-08-24 07:07] LABS: BUN Creatinine Ratio 22.2 (10-20); Calcium 10.3 mg/dl (8.5-10.1); Creatinine Clr Calc Pharmacy 67.3 ml/min; Est GFR (African American) 66.9 ml/min; Est GFR (Non-African American) 57.7 ml/min; Magnesium 1.9 mg/dl (1.7-2.4); Potassium 4.3 mmol/L (3.5-5.1)
--- NOTE | 2022-08-24 07:07 | Discharge Summary ---
Date of Service August 24, 2022 Admission HPI Per Admitting Provider Joann Powell is a 71-year-old female with a past medical history of renal transplant x2, last 3 years ago currently on prednisone, mycophenolate, and tacrolimus who was treated for a UTI with Augmentin 28 days ago with course extension after 14 days who presents with recurrent fevers over the last 24-48 hours. Fever does improve with Tylenol, has associated fatigue and general malaise. Has not had chest pain, chest pressure, shortness of breath, difficulty breathing, lightheadedness, dizziness. Patient had been in contact with her advanced practice psychiatric nurse at [facility] who recommended she be admitted to the hospital for IV antibiotics and additional work-up. On ER evaluation she has a leukocytosis increased from 10.94 on 08/20 up to 20.2 with neutrophilia. Hemoglobin 11.2. INR is 1.3 on DOAC. High-sensitivity troponin is 22.4, CRP is 18.45 with no prior baseline, procalcitonin is 2.04. UA is infected appearing with 1+ bacteria, leukocyte esterase, nitrites, blood, and protein. Feverish feeling x 5 days, 102*F temperature last night. Nausea all week. Taking 3x tyelnol yesterday 1x 6pm, 2x at 2200. 28 days ago was dx with a UTI. Does regular labs monthly for [place]. Had an elevated WBC, felt generally tired with dysuria. Started on Augmentin x14 and felt better. Katie toff for 2 days, then sx recurred with bladder pressure --> 2nd 14 day course. [place] worse in the last 7 days. +feverish but without actual fever until last night when it went to 102*F. Last two days burning is still there maybe a little less, but still feels very wiped out and feverish and couldn't go to work from fatigue. Some shortness of breath x1 week with exertion and more fatigue than usual. Denies past/current chest pain/chest pressure. No cough, no productive cough during the day. Some nighttime dry cough. has record of UA/UC. Renal transplant x2, last 3 years ago. MedRec:Cellcept 500mg AM Tacrolimus 2mg AM, 1mg PM Eliquis 5mg BID Atorva 10mg qHS Coreg 3.125mg BID LExapro 20mg hs b12 montly 1000mcg Hydroxyzine 10mg PRN Prednisone 5mg dialy +OTC. next meds due at 6pm (prograf). Has not missed any doses. [place] 08/20: 6.8, 07/23: 5.9 Medical History: Reviewed Medications: Reviewed Surgical History: Reviewed Allergies: Reviewed Social History: Denies tobacco/alcohol Code Status: Full code Discharge Data Allergies Allergy/AdvReac Type Severity Reaction Status Date / Time urokinase Allergy Severe RESP Verified 08/22/22 15:00 DISTRESS vancomycin Allergy Severe RESP Verified 08/22/22 15:00 DISTRESS salicylates AdvReac Severe AVOIDS Verified 08/22/22 15:00 SECONDARY TO CKD Consultations 08/22/22 13:23 ED Decision to Admit Stat Hospital Course (1) Complicated UTI (urinary tract infection): Persistent UTI with history of resistance failing Augmentin outpatient treatment UA infected appearing Urine culture pseudomonas Blood cultures pending - CXR: 1. Cardiomegaly with chronic interstitial coarsening.2. Moderate sized hiatal hernia. Past urine cultures positive for E. coli (ampresistant, levofloxacin resistant, Cipro resistant; ceftriaxone/cefepime sensitive), alpha strep, Enterococcus tetracycline resistant, Citrobacter Rocephin resistant, and Enterobacter Bactrim/Macrobid resistant. Given past Citrobacter cephalosporin resistant and E. coli Augmentin resistant CRP 18.45, procalcitonin 2.04. CRP trended -given zosyn in ED, switched to cefepime given likely penicillin resistance CKD, history of renal transplant 2/2 pyelonephritis 2nd transplant 2019 @ [facility] Creatinine 1.04 on admission, estimated GFR 54 Renally dose medications BMP daily - [place] 08/20: 6.8, 07/23: 5.9. Goal levels ~3-7 Tacrolimus continue 2 mg a.m., 1 mg p.m. (@6pm). Repeat level pending. Continue mycophenolate 500 mg daily (@6pm per pt) Hypertension Continue carvedilol 3.25 p.o. twice daily Hyperlipidemia Continue atorvastatin 10 mg p.o. every afternoon History of DVTs Continue apixaban 5 mg p.o. twice daily Troponin elevation No known cardiac disease. High sensitive troponin 22.4 No chest pain Suspect demand ischemia EKG with no ST segment changes, nsr Hypomagnesemia 1.4 on admission, repletion ordered Troponin elevation Suspect demand ischemia Without chest pain EKG without findings of ACS Troponin downtrending -echo EF 60-65% severe LA dilation, mod pulm HTN -Patient with cardiomegaly on CXR Follow on telemetry West's Esophagus - PPI Anxiety Continue hydroxyzine twice daily as needed Continue Lexapro 20 mg p.o. every afternoon DVT prophylaxis: Anticoagulated for paroxysmal A. fib and history of chronic venous thrombosis Diet: Heart healthy Disposition: Medical telemetry CODE STATUS: Full code discussed with patient, surrogate decision maker would be her (2) Hypothyroidism: (3) Hypertension: (4) Hypercholesterolemia: (5) West's esophagus: Discharge Plan Discharge Items Reason For Visit: uti, hx renal transplant Follow-up/Referrals: Ian Huang [Primary Care Provider] - Medications and DC Order Prescriptions: No Action acetaminophen [Tylenol Extra Strength] 500 mg tablet 500 mg PO Q6H PRN (Reason: Pain) atorvastatin [Lipitor] 10 mg tablet 10 mg PO QPM cyanocobalamin (vitamin B-12) 1,000 mcg/mL kit 1,000 mcg SQ MO Rx Instructions: 1,000 mcg subcut Monthly; prednisone 5 mg tablet 5 mg PO QAM Eliquis 5 mg tablet 5 mg PO BID mycophenolate mofetil 500 mg tablet 500 mg PO QAM tacrolimus 1 mg capsule See Rx Instructions .ROUTE .COMPLEX Rx Instructions: 1 mg orally ;2mg AM, 1mg HS omeprazole 20 mg capsule,delayed release(DR/EC) 20 mg PO DAILY cetirizine [Zyrtec] 10 mg Tablet 10 mg PO QAM PRN (Reason: Itching) hydroxyzine HCl 10 mg Tablet 10 mg PO BID PRN (Reason: Anxiety) escitalopram oxalate [Lexapro] 20 mg Tablet 20 mg PO QPM biotin 1 mg Capsule 2 mg PO QPM carvedilol 6.25 mg tablet 3.25 mg PO BID Admission Data Admit Date/Time: 08/22/22 13:39 Attending Provider: German Valdez Admit Provider: Murphy Jordan Primary Care Provider: Ian Huang Other Providers: Murphy Jordan
[2022-08-24] MEDS: carvediloL 6.25 MG TAB PO SCH ×2 (07:50→21:05)
[2022-08-24] MEDS: MAGNESIUM OXIDE 400 MG TAB PO SCH ×2 (07:50→21:05)
[2022-08-24] MEDS: predniSONE 5 MG TAB PO SCH (07:50)
[2022-08-24] MEDS: PANTOprazole 40 MG TAB PO SCH (07:50)
[2022-08-24] MEDS: TACROLIMUS 1 MG CAP PO SCH ×2 (07:50→17:25)
[2022-08-24] MEDS: APIXABAN 5 MG TABLET PO SCH ×2 (07:50→21:05)
--- NOTE | 2022-08-24 17:23 | Hospitalist Progress Note ---
Date of Service August 24, 2022 Assessment & Plan (1) Complicated UTI (urinary tract infection): Plan: Persistent UTI with history of resistance failing Augmentin outpatient treatment UA infected appearing Urine culture pseudomonas Blood cultures pseudomonas - CXR: 1. Cardiomegaly with chronic interstitial coarsening.2. Moderate sized hiatal hernia. Past urine cultures positive for E. coli (amp-resistant, levofloxacin resistant, Cipro resistant; ceftriaxone/cefepime sensitive), alpha strep, Enterococcus tetracycline resistant, Citrobacter Rocephin resistant, and Enterobacter Bactrim/Macrobid resistant. Given past Citrobacter cephalosporin resistant and E. coli Augmentin resistant CRP 18.45, procalcitonin 2.04. CRP trended -given zosyn in ED, switched to cefepime given likely penicillin resistance, will sent out for total 14 days IV cefepime CKD, history of renal transplant 2/2 pyelonephritis 2nd transplant 2018 @ [facility] Creatinine 1.04 on admission, estimated GFR 54 Renally dose medications BMP daily - [place] 08/20: 6.8, 07/23: 5.9. Goal levels ~3-7 Tacrolimus continue 2 mg a.m., 1 mg p.m. (@6pm). Repeat level pending. Continue mycophenolate 500 mg daily (@6pm per pt) - trying to contact Dr. Amy Hodges ID for transplant patients at [facility] to ensure antibiotic regime is appropriate Hypertension Continue carvedilol 3.25 p.o. twice daily Hyperlipidemia Continue atorvastatin 10 mg p.o. every afternoon History of DVTs Continue apixaban 5 mg p.o. twice daily Troponin elevation No known cardiac disease. High sensitive troponin 22.4 No chest pain Suspect demand ischemia EKG with no ST segment changes, nsr Hypomagnesemia 1.4 on admission, repletion ordered Troponin elevation Suspect demand ischemia Without chest pain EKG without findings of ACS Troponin downtrending -echo EF 60-65% severe LA dilation, mod pulm HTN -Patient with cardiomegaly on CXR Follow on telemetry West's Esophagus - PPI Anxiety Continue hydroxyzine twice daily as needed Continue Lexapro 20 mg p.o. every afternoon DVT prophylaxis: Anticoagulated for paroxysmal A. fib and history of chronic venous thrombosis Diet: Heart healthy Disposition: Medical telemetry CODE STATUS: Full code discussed with patient, surrogate decision maker would be her (2) Hypothyroidism: (3) Hypertension: (4) Hypercholesterolemia: (5) West's esophagus: Admission and Anticipated Discharge Date Admission Date: August 22, 2022 Supervising Physician Co-Signing Physician Notes I also saw the patient confirmed whitaker portions of the history and physical examination. I agree with the impression plan as noted the resident documentat ion. EXAM 134/83, 67, 18, 36.4, 92% on room air Pleasant and alert. No distress appreciated. Heart is regular Nonlabored respirations DATA White blood cell count 7.44, hemoglobin 10.3, platelet count 134 Sodium 134, potassium 4.3, BUN 22, creatinine 0.99 10/26 blood cultures positive for probable Pseudomonas species Urine culture shows growth for Pseudomonas, pansensitive IMPRESSION & PLAN Complicated UTI with bacteremia Immunocompromise solid organ transplant recipient, on immunosuppressive therapy Will reach out the patient's infectious disease team to see if we can coordinate care. Patient actually has a telehealth visit with her ID team tomorrow. Oral quinolone may be a possibility given sensitivities, although would need to confirm with her ID/transplant team regarding appropriateness and duration. Fortunately, overall, she is looking improved and quite stable. Anticipate discharge tomorrow Subjective Patient seen at bedside, calm comfortable cooperative. She denies any pain SOB nausea vomitting. She has a follow up with ID at [facility] tomorrow that specializes in transplant patients, we recommend she keep her appointment and are trying to reach out to her doctor Amy Hodges. She understands we need to set out outpatient antibiotics. Review of Systems Review of Systems: Negative fever chills Negative headache dizziness Negative palpitations SOB Negative nausea vomitting diarrhea constipation Physical Exam Constitutional: WD/WN, vitals as above Eyes: PERRL, conjunctivae normal, anicteric sclerae ENMT: external ear and nose normal, oropharynx normal Neck: trachea midline, no thyromegaly Respiratory: normal respiratory effort, lungs clear to auscultation Chest (Breasts): Chest: normal inspection of chest Gastrointestinal (Abdomen): Inspection/Auscultation: abdomen normal to inspection Percussion/Palpation: abdomen soft; abdomen nontender Skin: no rashes, warm and dry Psychiatric: A+Ox3, euthymic affect Results & Data Results & Data ([facility]) Vital Signs (Past 12 Hours) Vital Signs Temp Pulse Pulse Resp BP Pulse Ox O2 Del Method 08/24/22 15:18 67 08/24/22 14:59 36.4 C L 60 18 134/83 92 Room Air 08/24/22 11:16 36.5 C 68 112/75 93 Room Air 08/24/22 08:56 Room Air 08/24/22 07:41 36.6 C 68 117/68 93 Room Air 08/24/22 07:03 68 08/24/22 05:41 98 Room Air Laboratory Results 08/24/22 08/24/22 Range/Units 06:11 06:11 WBC 7.44 (4.8-10.8) K/ul RBC 3.31 L (3.93-5.22) M/uL Hgb 10.3 L (12.0-16.0) g/dl Hct 32.5 L (34.1-44.9) % MCV 98.2 (80.0-100.0) fL MCH 31.1 (25.0-34.0) pg MCHC 31.7 L (32.0-36.0) g/dL RDW Std Deviation 46.2 (36.4-46.3) fL RDW Coeff of Clifford 12.8 (11.5-14.5) % Plt Count 134 (130-400) K/uL MPV 10.8 (9.4-12.3) fL Sodium 134 L (136-145) mmol/L Potassium 4.3 (3.5-5.1) mmol/L Chloride 102 (98-107) mmol/L Carbon Dioxide 29 (21-32) mmol/L Anion Gap 3 (3-11) BUN 22 (6-23) mg/dl Creatinine 0.99 (0.6-1.2) mg/dl Est Cr Clr Drug Dosing 67.3 ml/min Est GFR ( Amer) 66.9 ml/min Est GFR (Non-Af Amer) 57.7 ml/min BUN/Creatinine Ratio 22.2 H (10-20) Glucose 119 H (70-99(Fasting)) mg/dl Calcium 10.3 H (8.5-10.1) mg/dl Magnesium 1.9 (1.7-2.4) mg/dl Medications Administered Current Inpatient Medications Acetaminophen (Acetaminophen 325 Mg Tab) 650 mg PO Q4H PRN PRN Reason: Pain or Fever Stop: 09/21/22 15:56 Last Admin: 08/24/22 00:55 Dose: 650 mg Apixaban (Apixaban 5 Mg Tablet) 5 mg PO BID [facility] Stop: 09/21/22 20:59 Last Admin: 08/24/22 07:50 Dose: 5 mg Carvedilol (Carvedilol 6.25 Mg Tab) 3.25 mg PO BID RADHA Stop: 09/21/22 20:59 Last Admin: 08/24/22 07:50 Dose: 3.25 mg Escitalopram Oxalate (Escitalopram Oxalate 20 Mg Tab) 20 mg PO QPM RADHA Stop: 09/21/22 20:59 Last Admin: 08/23/22 20:03 Dose: 20 mg Hydroxyzine HCl (Hydroxyzine Hcl 10 Mg Tab) 10 mg PO BID PRN PRN Reason: Anxiety Stop: 09/21/22 15:56 Cefepime HCl 2,000 mg/ Syringe 20 mls @ 5 mls/min IV Q8 [facility] Stop: 09/02/22 13:59 Last Admin: 08/24/22 13:32 Dose: 5 mls/min Magnesium Hydroxide (Magnesium Hydroxide Susp 30 Ml Udc) 30 ml PO Q12H PRN PRN Reason: Constipation Stop: 09/21/22 15:56 Magnesium Oxide (Magnesium Oxide 400 Mg Tab) 400 mg PO BID [facility] Stop: 09/21/22 14:24 Last Admin: 08/24/22 07:50 Dose: 400 mg Mycophenolate Mofetil (Mycophenolate Mofetil 250 Mg Cap) 500 mg PO 1800 [facility] Stop: 09/21/22 17:59 Last Admin: 08/23/22 17:33 Dose: 500 mg Ondansetron HCl (Ondansetron Inj 2 Mg/Ml 2 Ml Vial) 4 mg IV Q6H PRN PRN Reason: Nausea Stop: 09/21/22 15:56 Pantoprazole Sodium (Pantoprazole 40 Mg Tab) 40 mg PO QAM [facility] Stop: 09/22/22 11:44 Last Admin: 08/24/22 07:50 Dose: 40 mg Polyethylene Glycol (Polyethylene (Miralax) 17 Gm Pack) 17 gm PO DAILY PRN PRN Reason: Constipation Stop: 09/21/22 15:56 Prednisone (Prednisone 5 Mg Tab) 5 mg PO QAM [facility] Stop: 09/22/22 08:59 Last Admin: 08/24/22 07:50 Dose: 5 mg Tacrolimus (Tacrolimus 1 Mg Cap) 2 mg PO QAM [facility] Stop: 09/22/22 08:59 Last Admin: 08/24/22 07:50 Dose: 2 mg Tacrolimus (Tacrolimus 1 Mg Cap) 1 mg PO 1800 [facility] Stop: 09/21/22 17:59 Last Admin: 08/23/22 17:34 Dose: 1 mg Resident Activity Tracking Resident Involvement: Resident Care Provided Care Provided: Adult [facility] Medicine
[2022-08-24] MEDS: MYCOPHENOLATE MOFETIL 250 MG CAP PO SCH (17:26)
[2022-08-24] MEDS: ESCITALOPRAM OXALATE 20 MG TAB PO SCH (21:05)
[2022-08-25] MEDS: CEFEPIME 2,000 MG in SYRINGE 0 ML IV SCH ×2 (05:17→13:50)
--- NOTE | 2022-08-25 07:04 | Discharge Summary ---
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 Fever does improve with Tylenol, has associated fatigue and general malaise. Has not had chest pain, chest pressure, shortness of breath, difficulty breathing, lightheadedness, dizziness. 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 On ER evaluation she has a leukocytosis increased from 10.94 on 08/20 up to 20.2 with neutrophilia. Hemoglobin 11.2. INR is 1.3 on DOAC. High-sensitivity troponin is 22.4, CRP is 18.45 with no prior baseline, procalcitonin is 2.04. UA is infected appearing with 1+ bacteria, leukocyte esterase, nitrites, blood, and protein. Feverish feeling x 5 days, 102*F temperature last night. Nausea all week. Taking 3x tyelnol yesterday 1x 6pm, 2x at 2200. 28 days ago was dx with a UTI. 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 Had an elevated WBC, felt generally tired with dysuria. Started on Augmentin x14 and felt better. Katie toff for 2 days, then sx recurred with bladder pressure --> 2nd 14 day course. [place] worse in the last 7 days. +feverish but without actual fever until last night when it went to 102*F. Last two days burning is still there maybe a little less, but still feels very wiped out and feverish and couldn't go to work from fatigue. Some shortness of breath x1 week with exertion and more fatigue than usual. Denies past/current chest pain/chest pressure. No cough, no productive cough during the day. Some nighttime dry cough. has record of UA/UC. Renal transplant x2, last 3 years ago. MedRec:Cellcept 500mg AM Tacrolimus 2mg AM, 1mg PM Eliquis 5mg BID Atorva 10mg qHS Coreg 3.125mg BID LExapro 20mg hs b12 montly 1000mcg Hydroxyzine 10mg PRN Prednisone 5mg dialy +OTC. next meds due at 6pm (prograf). Has not missed any doses. [place] 08/20: 6.8, 07/23: 5.9 Medical History: Reviewed Medications: Reviewed Surgical History: Reviewed Allergies: Reviewed Social History: Denies tobacco/alcohol Code Status: Full code Admission Exam Per Admitting Provider General: A&Ox3. NAD. Cooperative. Skin warm, moist. HEENT: Atraumatic, normocephalic. PERLAA. EoM intact. Pulm: CTAB A&P. -wheezes, -rales, -rhonchi. Symmetrical chest rise. No increased work of breathing. No respiratory distress. Cardiac: RRR, -mrg. Radial pulses intact and symmetrical. Abdominal: Nontender, nondistended, soft. BS present. Ext: warm, dry. Moves tino xtremities equally. Principal Diagnosis UTI Discharge Exam Constitutional WD/WN, vitals as above Eyes PERRL, conjunctivae normal, anicteric sclerae ENMT external ear and nose normal, oropharynx normal Neck trachea midline, no thyromegaly Respiratory normal respiratory effort, lungs clear to auscultation Chest (Breasts) Chest: normal inspection of chest Gastrointestinal (Abdomen) Inspection/Auscultation: abdomen normal to inspection Percussion/Palpation: abdomen soft; abdomen nontender Skin no rashes, warm and dry Psychiatric A+Ox3, euthymic affect Discharge Data Allergies Allergy/AdvReac Type Severity Reaction Status Date / Time urokinase Allergy Severe RESP Verified 08/22/22 15:00 DISTRESS vancomycin Allergy Severe RESP Verified 08/22/22 15:00 DISTRESS salicylates AdvReac Severe AVOIDS Verified 08/22/22 15:00 SECONDARY TO CKD Consultations 08/22/22 13:23 ED Decision to Admit Stat Hospital Course (1) Complicated UTI (urinary tract infection): Complete Ciprofloxacin BID 10 days (1) Complicated UTI (urinary tract infection): Persistent UTI with history of resistance failing Augmentin outpatient treatment UA infected appearing Urine culture pseudomonas, Blood cultures pseudomonas - CXR:1. Cardiomegaly with chronic interstitial coarsening.2. Moderate sized hiatal hernia. Past urine cultures positive for E. coli (amp-resistant, levofloxacin resistant, Cipro resistant; ceftriaxone/cefepime sensitive), alpha strep, Enterococcus tetracycline resistant, Citrobacter Rocephin resistant, and Enterobacter Bactrim/Macrobid resistant. Given past Citrobacter cephalosporin resistant and E. coli Augmentin resistant CRP 18.45, procalcitonin 2.04. CRP trended -given zosyn in ED, switched to cefepime given likely penicillin resistance, will sent out for ciprofloxacin BID 10 days CKD, history of renal transplant 2/2 pyelonephritis 2nd transplant 2019 @ [place] Creatinine 1.04 on admission, estimated GFR 54 - Tac Level 08/20: 6.8, 07/23: 5.9. Goal levels ~3-7 Tacrolimus continue 2 mg a.m., 1 mg p.m. (@6pm). Repeat level pending. Continue mycophenolate 500 mg daily (@6pm per pt) - contacted Dr. Amy Hodges ID for transplant patients at [facility] to ens ure antibiotic regime is appropriate, they have low familiarity with patient Hypertension Continue carvedilol 3.25 p.o. twice daily Hyperlipidemia Continue atorvastatin 10 mg p.o. every afternoon History of DVTs Continue apixaban 5 mg p.o. twice daily Troponin elevation No known cardiac disease. High sensitive troponin 22.4 No chest pain Suspect demand ischemia EKG with no ST segment changes, nsr Hypomagnesemia 1.4 on admission, repletion ordered Troponin elevation Suspect demand ischemia. No chest pain EKG without findings of ACS Troponin downtrending -echo EF 60-65% severe LA dilation, mod pulm HTN -Patient with cardiomegaly on CXR Wets's Esophagus - PPI Anxiety Continue hydroxyzine twice daily as needed Continue Lexapro 20 mg p.o. every afternoon (2) Hypothyroidism: (3) Hypertension: (4) Hypercholesterolemia: (5) West's esophagus: Total Time Total Time Spent Total Time Spent (In Minutes): 25 minutes Discharge Plan Discharge Items Patient Disposition: Home - Self-Care Reason For Visit: uti, hx renal transplant Discharge Diagnosis: UTI Activity: Resume your previous activity Non-emergency contact: Primary Care Provider Call non-emergency contact if: you have any medication questions, your symptoms worsen and you have a fever Follow-up/Referrals: Ian Huang [Primary Care Provider] - (patient has appointment with [facility] on [facility] at 10:50am) Diet: Regular Addtl Attending Provider Instructions: You were admitted to the hospital for a complicated urinary tract infection. You were found to grow the bacteria Pseudomonas in your urine and blood. You were treated with IV antibiotics called Zosyn and Cefepime, and your symptoms improved. We will transition you to an oral antibiotic called Ciprofloxacin. Please take this twice per day starting TONIGHT, for the next 10 days. You have an appointment at [facility], with Dr. Wilder, on 08/28 at 10:50am. Please do not hesitate to contact your doctor or go to the hospital if you start to feel worse. A discharge summary will be sent to your primary care physician to ensure continuity of care. Please bring this discharge summary with you to your next office appointment so that your provider can review it at that time. Follow-up appointments: Make a follow-up appointment with your PCP within the next week. It is very important that you follow up with them shortly after discharge from the hospital. Keep all your follow-up appointments as already scheduled. If you cannot make an appointment, notify your provider. Medications: Your medication list has been reviewed and reconciled upon discharge to ensure accuracy and continuity of care. An updated list of all your medications is included with your hospital discharge paperwork. Please review this list closely, and make note of any changes. * We sent a new medication called Cefeime to your pharmacy. Please administer Cefepime 2000mg IV every 8 hours for 10 days Take your medications as instructed; do not skip a dose of your medicines. Make sure all of your doctors know every medicine you are taking (including [id number] medicines, vitamins, and supplements). Call your primary care provider before taking any new medicines (including [id number] medicines, vitamins, and supplements), because some of these may interact with your current medications, or may make your symptoms worse. Tell your primary care provider if you cannot afford your medications. CONTACT YOUR PRIMARY CARE PROVIDER if you experience any of the following: Fever, difficulty breathing, increasing weakness Blood or pain with urination, abdominal pain Difficulty following your treatment plan, or difficulty taking medications CALL 911 OR GO TO THE EMERGENCY DEPARTMENT if you experience any of the following: Sudden, severe abdominal pain or nausea/vomiting Severe chest pain, or chest pain that radiates (moves) to your jaw or arm Sudden, severe shortness of breath or difficulty breathing Thank you for allowing us to participate in your care. Pending Studies at Discharge: No Stand-Alone Forms: My [facility] Workspace, Smoking Cessation Medications and DC Order Prescriptions: New ciprofloxacin HCl 500 mg tablet 500 mg PO BID 10 Days Qty: 20 0RF Continued acetaminophen [Tylenol Extra Strength] 500 mg tablet 500 mg PO Q6H PRN (Reason: Pain) atorvastatin [Lipitor] 10 mg tablet 10 mg PO QPM cyanocobalamin (vitamin B-12) 1,000 mcg/mL kit 1,000 mcg SQ MO Rx Instructions: 1,000 mcg subcut Monthly; prednisone 5 mg tablet 5 mg PO QAM Eliquis 5 mg tablet 5 mg PO BID mycophenolate mofetil 500 mg tablet 500 mg PO QAM tacrolimus 1 mg capsule See Rx Instructions .ROUTE .COMPLEX Rx Instructions: 1 mg orally ;2mg AM, 1mg HS omeprazole 20 mg capsule,delayed release(DR/EC) 20 mg PO DAILY cetirizine [Zyrtec] 10 mg Tablet 10 mg PO QAM PRN (Reason: Itching) hydroxyzine HCl 10 mg Tablet 10 mg PO BID PRN (Reason: Anxiety) escitalopram oxalate [Lexapro] 20 mg Tablet 20 mg PO QPM biotin 1 mg Capsule 2 mg PO QPM carvedilol 6.25 mg tablet 3.25 mg PO BID Discharge Orders: Discharge Order (Routine); Ordered 08/25/22 Ordered By: Ezio Olivarez Admission Data Admit Date/Time: 08/22/22 13:39 Attending Provider: Pedro Burrows Admit Provider: Murphy Jordan Primary Care Provider: Ian Huang Other Providers: Murphy Jordan Other Interventions: Discharge Summary Assessment (RN) Last Done: 08/25/22 13:55 Supervising Physician Co-Signing Physician Notes I also saw the patient confirmed whitaker portions of the history and physical examination. I agree with the impression plan as noted the resident documentation. EXAM 117/78, 50, 18, 36.8, 90% on room air Pleasant and alert. No distress appreciated. Heart is regular Nonlabored respirations DATA WBC 6.0, hemoglobin 10.7, platelet count 149 Sodium 137, potassium 4.5, BUN 23, creatinine 0.90 1/2 blood cultures positive for probable Pseudomonas species Urine culture shows growth for Pseudomonas, pansensitive IMPRESSION & PLAN Complicated UTI with bacteremia Immunocompromise solid organ transplant recipient, on immunosuppressive therapy Discharged home today with ciprofloxacin 500 mg p.o. twice daily day Outpatient follow-up in our office in 3 days Discussed signs and symptoms for which to monitor If recurrent urinary symptoms, may would recommend urine culture followed by empiric treatment for previous identified E. coli She will have outpatient follow-up via telehealth with her [place] team. Resident Activity Tracking Resident Involvement: Resident Care Provided Care Provided: [facility]
[2022-08-25 07:33] LABS: Basophils # (auto) 0.03 K/uL (0-0.2); Basophils % (auto) 0.5 %; Eosinophils % (auto) 3.3 %; Hematocrit (blood only) 33.4 % (34.1-44.9); Hemoglobin 10.7 g/dl (12.0-16.0); Immature Granulocytes # (auto) 0.03 K/uL (0.00-0.02); Immature Granulocytes % (auto) 0.5 %; Lymphocytes # (auto) 0.84 K/uL (1.2-3.4); Mean Corpuscular Hemoglobin 30.9 pg (25.0-34.0); Mean Corpuscular Volume 96.5 fL (80.0-100.0); Mean Platelet Volume 10.1 fL (9.4-12.3); Monocytes # (auto) 0.46 K/uL (0.24-0.82); Monocytes % (auto) 7.7 %; Neutrophils # (auto) 4.44 K/uL (1.4-6.5); Platelet Count 149 K/uL (130-400); RDW Coefficient of Variation 12.8 % (11.5-14.5); RDW Standard Deviation 45.8 fL (36.4-46.3); Red Blood Count 3.46 M/uL (3.93-5.22)
[2022-08-25 08:01] LABS: BUN Creatinine Ratio 25.6 (10-20); Calcium 10.5 mg/dl (8.5-10.1); Creatinine Clr Calc Pharmacy 74.8 ml/min; Est GFR (African American) 75.1 ml/min; Est GFR (Non-African American) 64.8 ml/min; Potassium 4.5 mmol/L (3.5-5.1)
[2022-08-25] MEDS: MAGNESIUM OXIDE 400 MG TAB PO SCH (08:57)
[2022-08-25] MEDS: carvediloL 6.25 MG TAB PO SCH (08:57)
[2022-08-25] MEDS: PANTOprazole 40 MG TAB PO SCH (08:58)
[2022-08-25] MEDS: APIXABAN 5 MG TABLET PO SCH (08:58)
[2022-08-25] MEDS: predniSONE 5 MG TAB PO SCH (08:58)
[2022-08-25] MEDS: TACROLIMUS 1 MG CAP PO SCH (08:59)
[2022-08-25] MEDS ORDERED: carvediloL 3.125 MG TAB PO SCH (21:00)
--- NOTE | 2022-09-02 16:59 | Coding Query ---
To promote full compliance with coding requirements relating to patient care, provider participation is requested in all cases of legal records clerk uncertainty. Please assist us with the question(s) below: Coding Question(s): The diagnosis below was documented in the ER, then subsequently fell off all further documentation. Please indicate if it is still a possible diagnosis or ruled out. Physician's Response(s): SEPSIS (documented only on ER) ( ) Diagnosed and POA ( ) Diagnosed and not POA ( x) Ruled out ( ) Other (please specify) MTDD
== END 2022-08-25 14:15 | disposition home or self-care (01) | DRG 689 ==
LOC: ED 11:27 → 2N 13:39 → SUATTDRO 13:39 → 2N 14:59